=== PATIENT | female | born 1965 | race Caucasian/White ===

== ENCOUNTER 2021-02-16 13:26 | Outpatient (REF) | payer OTHER, SELFPAY ==
--- NOTE | ~2021-02-16 | MM_ITS ---
EXAMINATION: MM DIAGNOSTIC DIGITAL BREAST TOMOSYNTHESIS, BILATERAL CLINICAL INFORMATION: Due for yearly exam. Also follow-up probable benign asymmetric density upper outer left breast. No known family history breast cancer. The lifetime risk of breast cancer based on the Tyrer-Cuzick Model is 6%. COMPARISON: Mammography: 02/17/2020, 06/29/2019, 12/29/2018, 12/10/2018 (BI-RADS 0), and prior exams dating back to 09/28/2010. TECHNIQUE: Digital breast tomosynthesis is performed in both the craniocaudal and mediolateral oblique views along with computer-aided detection (CAD). Synthesized 2D images are generated from the tomosynthesis. Additional spot left ML x2 views are obtained. FINDINGS: There are scattered areas of fibroglandular density (ACR BI-RADS breast composition Category b). The right breast is unremarkable. There is no interval mass or architectural abnormality. Neither breast shows abnormal calcifications. The bilateral axilla and skin contours are unremarkable. Nodular parenchymal asymmetry upper outer left breast appear stable from prior diagnostic exams. In retrospect, there is similar appearance on more remote mammography but partially obscured by overlying fibroglandular tissue which as subsequently involuted over time. Given the stability during diagnostic surveillance, finding is now considered benign. Results are provided to the patient at time of visit by the technologist. MM/MM tomosynthesis diagnostic BI IMPRESSION: No significant changes from prior studies. The asymmetry left upper outer quadrant is now considered benign. ASSESSMENT: BI-RADS 2: Benign RECOMMENDATION: Routine annual mammography screening. This patient's information was entered into a reminder system with a target due date for their next mammogram.
== END 2021-02-16 13:27 | disposition home or self-care (01) ==
LOC: HO.MAMMO 13:26
PROVIDERS: PCP Family Medicine; Visit Provider Family Medicine
DX: R92.2 Inconclusive mammogram (principal)
CPT/HCPCS: 77062; 77066

== ENCOUNTER 2022-02-19 12:46 | Outpatient (REF) | payer OTHER, SELFPAY ==
--- NOTE | ~2022-02-19 | MM_ITS ---
EXAMINATION: MM SCREENING DIGITAL BREAST TOMOSYNTHESIS, BILATERAL CLINICAL INFORMATION: Screening. Asymptomatic. The lifetime risk of breast cancer based on the Tyrer-Cuzick Model is 6%. COMPARISON: Mammography: 02/16/2021, 06/29/2019, 12/29/2018, 12/10/2018, 11/18/2017 TECHNIQUE: Digital breast tomosynthesis is performed in both the craniocaudal and mediolateral oblique views along with computer-aided detection (CAD). Synthesized 2D images are generated from the tomosynthesis. FINDINGS: There are scattered areas of fibroglandular density (ACR BI-RADS breast composition Category b). Parenchymal pattern is similar to prior studies. Nodularity mid upper outer left breast is stable. There is no developing density or architectural abnormality. No abnormal calcifications. The axilla and skin contours are unremarkable. MM/MM tomosynthesis screening BI IMPRESSION: No significant changes from prior exams. ASSESSMENT: BI-RADS 2: Benign RECOMMENDATION: Routine annual mammography screening. This patient's information was entered into a reminder system with a target due date for their next mammogram.
== END 2022-02-19 12:47 | disposition home or self-care (01) ==
LOC: HO.MAMMO 12:46
PROVIDERS: Visit Provider Family Medicine
DX: Z12.31 Encounter for screening mammogram for malignant neoplasm of breast (principal)
CPT/HCPCS: 77063; 77067

== ENCOUNTER 2023-03-11 13:09 | Outpatient (REF) | payer OTHER, SELFPAY ==
--- NOTE | ~2023-03-11 | MM_ITS ---
EXAMINATION: MM SCREENING DIGITAL BREAST TOMOSYNTHESIS, BILATERAL CLINICAL INFORMATION: Screening. Asymptomatic. The lifetime risk of breast cancer based on the Tyrer-Cuzick Model is 6.4%. COMPARISON: Mammography: This study is compared with prior exams dating back to 2019. TECHNIQUE: Digital breast tomosynthesis is performed in both the craniocaudal and mediolateral oblique views along with computer-aided detection (CAD). Synthesized 2D images are generated from the tomosynthesis. FINDINGS: There are scattered areas of fibroglandular density (ACR BI-RADS breast composition Category b). There are no significant masses, abnormal calcifications, or other abnormalities. MM/MM tomosynthesis screening BI IMPRESSION: No mammographic evidence of malignancy. ASSESSMENT: BI-RADS BI-RADS 1 - Negative RECOMMENDATION: Routine annual mammography screening. 1 year F/U This examination should not preclude the clinical evaluation of a suspicious palpable abnormality. This patient's information was entered into a reminder system with a target due date for their next mammogram.
== END 2023-03-11 13:10 | disposition home or self-care (01) ==
LOC: HO.MAMMO 13:09
PROVIDERS: Visit Provider Family Medicine
DX: Z12.31 Encounter for screening mammogram for malignant neoplasm of breast (principal)
CPT/HCPCS: 77063; 77067

== ENCOUNTER → 2023-03-11 13:30 | Outpatient (BNV) | payer OTHER, SELFPAY | PROVIDERS: Visit Provider Radiology Diagnostic Radiology | DX: Z12.31 Encounter for screening mammogram for malignant neoplasm of breast (principal) | CPT/HCPCS: 77063; 77067 ==

== ENCOUNTER 2023-07-23 12:32 | Outpatient (REF) | payer OTHER, SELFPAY ==
[2023-07-23 14:33] LABS: MANUAL DIFF FLAG NO
[2023-07-23 14:33] LABS: Appearance Urine Clear; Color Urine Dark Yellow; Glucose Urine UA Negative (Negative); Leukocyte Esterase Urine Trace (Negative); Nitrite Urine Negative (Negative); Specific Gravity - Urine >= 1.030 (1.005-1.025); UMIC TRIGGER UA YES; Urine Blood Trace (Negative); Urine Ketones Trace mg/dL (Negative); Urine Protein 30 (1+) mg/dL (Neg-Trace)
[2023-07-23 14:38] LABS: Bacteria Urine None Seen (None Seen); Squamous Epithelial Cell Urine 0-2 /HPF (0-2); WBC Urine 0-5 /HPF (0-5)
[2023-07-23 14:40] LABS: Basophils Absolute Auto 0.1 X10*3/uL (0.0-0.2); Basophils Percent Auto 0.7 % (0-2); Eosinophils Absolute Auto 0.1 X10*3/uL (0.0-0.4); Eosinophils Percent Auto 1.1 % (0-4); Hematocrit 43.1 % (37.0-47.0); Hemoglobin 14.1 g/dl (12.0-16.0); Imm Gran Abs Auto 0.02 X10*3/uL (0.00-0.03); Imm Gran Pct Auto 0.3 % (0.0-0.4); Lymphocytes Absolute Auto 2.2 X10*3/uL (1.2-4.9); Lymphocytes Percent Auto 29.5 % (20-40); Mean Corpuscular HGB Conc 32.7 g/dl (31.0-35.0); Mean Corpuscular Hemoglobin 32.2 pg (27.0-33.0); Mean Corpuscular Volume 98.4 fL (80.0-98.0); Mean Platelet Volume 12.1 fL (9.4-12.3); Monocytes Absolute Auto 0.5 X10*3/uL (0.1-1.2); Neutrophils Absolute Auto 4.7 x10*3/uL (2.0-8.3); Neutrophils Percent Auto 62.4 % (45-73); Platelet Count 290 X10*3/uL (160-400); Red Blood Count 4.38 X10*6/uL (4.20-5.50); Red Cell Distribution Width 12.6 % (11.0-16.0); White Blood Count 7.5 X10*3/uL (4.8-10.8)
[2023-07-23 15:28] LABS: Alanine Aminotransferase 17 U/L (0-31); Albumin Level 4.1 g/dL (3.5-5.0); Alkaline Phosphatase 56 U/L (39-117); Anion Gap 8 (12-20); Aspartate Amino Transferase 17 U/L (5-31); Bilirubin Total 0.4 mg/dL (0.0-1.0); Blood Urea Nitrogen 13 mg/dL (9-16); Calcium 9.7 mg/dL (8.4-10.2); Carbon Dioxide 32 mmol/L (22-29); Chloride 104 mmol/L (96-108); Cholesterol 207 mg/dL (<200); Estimated Glomerular Filt Rate > 60; Glucose Random 81 mg/dL (60-115); HDL Cholesterol 48 mg/dL (>40); LDL Cholesterol Calculated 144 mg/dL (<100); Sodium 141 mmol/L (135-145); Total Protein 7.4 g/dL (6.5-8.0); Triglycerides 76 mg/dL (<150)
[2023-07-23 15:44] LABS: TSH reflex Free T4 2.08 uIU/mL (0.32-4.0)
== END 2023-07-23 12:33 | disposition home or self-care (01) ==
LOC: HO.CHCLDS 12:32
PROVIDERS: Visit Provider Family Medicine
DX: I10 Essential (primary) hypertension (principal); E78.5 Hyperlipidemia, unspecified
CPT/HCPCS: 36415; 80053; 80061; 81001; 84443; 85025

== ENCOUNTER 2023-07-29 10:42 | Outpatient (REF) | payer OTHER, SELFPAY ==
[2023-07-29 14:36] LABS: Anion Gap 10 (12-20); Blood Urea Nitrogen 13 mg/dL (9-16); Calcium 9.7 mg/dL (8.4-10.2); Carbon Dioxide 30 mmol/L (22-29); Chloride 102 mmol/L (96-108); Estimated Glomerular Filt Rate > 60; Glucose Random 77 mg/dL (60-115); Magnesium 1.9 mg/dL (1.6-2.6); Potassium 3.3 mmol/L (3.3-5.1); Sodium 139 mmol/L (135-145)
[2023-07-29 15:05] LABS: Appearance Urine Cloudy; Color Urine Yellow; Glucose Urine UA Negative (Negative); Leukocyte Esterase Urine Negative (Negative); Nitrite Urine Negative (Negative); PH 5.5 (5.0-9.0); Specific Gravity - Urine >= 1.030 (1.005-1.025); UMIC TRIGGER UA YES; Urine Blood Negative (Negative); Urine Ketones Trace mg/dL (Negative); Urine Protein 30 (1+) mg/dL (Neg-Trace)
[2023-07-29 15:24] LABS: Bacteria Urine Trace (None Seen); Hyaline Casts Urine 0-2 /LPF (0-2); WBC Urine 0-5 /HPF (0-5)
== END 2023-07-29 10:43 | disposition home or self-care (01) ==
LOC: HO.CHCLDS 10:42
PROVIDERS: Visit Provider Family Medicine
DX: R31.9 Hematuria, unspecified (principal); E87.6 Hypokalemia
CPT/HCPCS: 36415; 80048; 81001; 83735

== ENCOUNTER 2023-08-23 13:55 | Outpatient (AMB) | payer OTHER, SELFPAY ==
--- NOTE | 2023-08-23 13:58 | MHC.OFFVIS ---
Intake Intake Visit Reasons: microhematuria Intake Note: New Patient presents for initial visit for microhematuria Urology Medications: none Blood Thinner: none Smoker: never Loan Closer Required: Yes Loan Closer Name: MERRICK VALENCIA Accompanied by: Self / Same As Patient Allergies ascorbic acid [ASCORBIC ACID] Allergy (Unknown, Unverified 08/24/23 21:38) HIVES Medication List - Last Reconciled 08/24/23 by MARCIA Gunderson atorvastatin 40 mg PO DAILY chlorthalidone 25 mg PO DAILY verapamil ER 240 mg PO DAILY HPI HPI Comments History of Present Illness Details Leny is a very pleasant 58-year-old [place]alese-speaking female patient. She has a past medical history of hypertension, hyperlipidemia, and depression. She presents to the office today as a new patient for microscopic hematuria. In discussion with the patient today she reports to be doing and feeling well. She reports having had urine tested with PCP for her annual visit at which time she was noted to have microscopic hematuria and recommendations were made for Urology follow-up. When asked she denies any previous smoking history and or workplace chemical exposures. She denies any bothersome urinary issues or concerns. She reports be happy with current voiding parameters. When asked she denies urinary urgency, urinary frequency, incontinence, nocturia, hematuria, dysuria, foul smelling urine, changes to urinary stream, flank pain, fever, and or chills. In office urinalysis results reviewed with the patient today. No microscopic hematuria noted. Discussed at length potential causes for microscopic hematuria. Discussed surveillance monitoring versus further microscopic hematuria workup with in office cystoscopy, urine cytology, and imaging. She otherwise offers no other issues or concerns at this time. [facility] Medical History Hyperlipidemia Essential hypertension Depressive disorder Review of Systems Const Reports as per HPI Eyes Reports no additional complaints ENT Reports no additional complaints Card Reports as per HPI Resp Reports no additional complaints GI Reports as per HPI Reports as per HPI Musc Reports no additional complaints Neuro Reports no additional complaints Psych Reports as per HPI Endo Reports no additional complaints Nate/Lymph Reports no additional complaints Aller/Immun Reports no additional complaints Physical Exam Const General: cooperative, healthy appearing, comfortable, no acute distress, well developed, alert and awake Orientation/consciousness: patient oriented x3 Limitations: no limitations HEENT Head: Yes normal to inspection, Yes normocephalic and Yes atraumatic Ears: hearing grossly normal bilaterally Eyes General: appearance normal, both eyes and all related structures Neck Neck: Yes normal visual inspection and Yes trachea midline Chest Chest palpation & inspection: normal inspection of the chest Resp Effort & Inspection: normal respiratory effort and able to speak in complete sentences Cardio Rate: regular rate GI Inspection: Yes normal to inspection General: Yes no CVA tenderness Back/Spine/Pelvis Back: no CVA tenderness Skin General skin exam: no rashes or lesions noted Neuro General: patient oriented x3 Extrem General: Yes normal to inspection Psych Appearance: grossly normal and well kempt Mental Status: mental status grossly normal Speech and movement: Normal speech and movement present and Clear speech present Affect: normal affect Attitude: cooperative Thought process: Normal thought process present Thought content: Normal thought content present Insight: Good insight present (Psych) Judgement: Good judgement present (Psych) Results AMB Urinalysis, Automated UA Leukoctes 70 Petr/uL Last Edit by Eletrogóes on 08/23/23 15:19 UA Nitrite Negative Last Edit by Eletrogóes on 08/23/23 15:19 UA Urobilinogen 0.2 mg/dL Last Edit by Eletrogóes on 08/23/23 15:19 UA Protein 15 mg/dL Last Edit by Eletrogóes on 08/23/23 15:19 UA pH 7.0 Last Edit by Eletrogóes on 08/23/23 15:19 UA Blood 0 Mike/uL Last Edit by [employer] on 08/23/23 15:19 UA Specific [place] 1.015 Last Edit by [employer] on 08/23/23 15:19 UA Ketone Negative Last Edit by [employer] on 08/23/23 15:19 UA Bilirubin 0 mg/dL Last Edit by [employer] on 08/23/23 15:19 UA Glucose 0 mg/dL Last Edit by [employer] on 08/23/23 15:19 Results Reviewed Results Reviewed: Laboratory Last Values Urine pH (Auto) 7.0 08/23/23 14:06 Specific [place] (Auto) 1.015 08/23/23 14:06 Urine Protein (Auto) 15 mg/dL 08/23/23 14:06 Glucose (UA)(Auto) 0 mg/dL 08/23/23 14:06 Urine Ketones (Auto) Negative 08/23/23 14:06 Urine Blood (Auto) 0 Mike/uL 08/23/23 14:06 Urine Nitrite (Auto) Negative 08/23/23 14:06 Urine Bilirubin (Auto) 0 mg/dL 08/23/23 14:06 Urine Urobilinogen (Auto) 0.2 mg/dL 08/23/23 14:06 Leukocyte Esterase (Auto) 70 Petr/uL 08/23/23 14:06 Assessment & Plan Assessment & Plan (1) Microscopic hematuria: Code(s): R31.29 - Other microscopic hematuria Plan In office urinalysis results reviewed with the patient today; as noted above; no microscopic hematuria noted on UA today. Discussed at length potential causes for microscopic hematuria. Discussed, educated, encouraged on the importance of drinking plenty of water daily. Patient denies any bothersome urinary issues or concerns at this time. Patient reports be happy with current voiding parameters. Discussed further microscopic hematuria workup with urine cytology, imaging, and in office cystoscopy versus surveillance monitoring; this was discussed at length; discussed risks and benefits of these interventions. Will continue with surveillance monitoring. Follow-up in 6 months; or sooner with any issues, concerns, and or questions. Orders: Orders AMB Urinalysis Automated 08/23/23 Z13.9 - Encounter for screening, unspecified Urine Cytology 08/23/23 Z13.9 - Encounter for screening, unspecified Patient Instructions: The patient had an opportunity to ask questions regarding the treatment plan. All questions were answered. Physical exam, labs, and imaging were discussed and reviewed in detail. As well as risks, benefits, and discussion of treatment choices. No major barriers to understanding were identified. The patient expressed understanding and agreement with the above treatment plan. The patient was made aware they should contact our office by phone for worsening of their current condition, the appearance of new symptoms, or with any questions or concerns. Compliance is encouraged with any medications and follow up testing that is ordered. It is a privilege to be allowed the opportunity to participate in? your urological care.? Again, if you have any questions or concerns If you have any questions or concerns please do not hesitate to contact me. The office is [phone]. This note is constructed using voice recognition software. While every effort has been made to ensure accuracy tool and machine maintainer errors may have been included. Yours sincerely, GUCCI Gunderson-PAVEL Coding Level of Care Code New Pt Level 3 (75609) Diagnoses Microscopic hematuria R31.29
== END 2023-08-23 14:32 | disposition home or self-care (01) ==
PROVIDERS: Visit Provider Nurse Practitioner Family
DX: R31.29 Other microscopic hematuria (principal)
CPT/HCPCS: 99203

== ENCOUNTER 2023-08-23 13:55 | Outpatient (REF) | payer OTHER, SELFPAY ==
[2023-08-23 16:04] LABS: Urine Cytology See Pathology rpt
== END 2023-08-23 13:56 | disposition home or self-care (01) ==
LOC: HO.LNP 13:55
PROVIDERS: Visit Provider Nurse Practitioner Family
DX: R31.29 Other microscopic hematuria (principal)
CPT/HCPCS: 81003; 88112; 99202

== ENCOUNTER 2023-08-29 15:03 | Outpatient (REF) | payer OTHER, SELFPAY ==
[2023-08-29 18:20] LABS: Anion Gap 14 (12-20); Blood Urea Nitrogen 14 mg/dL (9-16); Carbon Dioxide 29 mmol/L (22-29); Chloride 100 mmol/L (96-108); Estimated Glomerular Filt Rate > 60; Glucose Random 96 mg/dL (60-115); Magnesium 1.9 mg/dL (1.6-2.6); Potassium 3.2 mmol/L (3.3-5.1); Sodium 140 mmol/L (135-145)
[2023-08-30 08:21] LABS: HIV AB/AG Nonreactive (Nonreactive); HIV Num 1 0.05 S/CO (0.00-0.99); ~HepC Num1 0.11 S/CO (0.00-0.79); ~Hepatitis C Antibody Nonreactive (Nonreactive)
== END 2023-08-29 15:04 | disposition home or self-care (01) ==
LOC: HO.CHCLDS 15:03
PROVIDERS: Visit Provider Family Medicine
DX: E87.6 Hypokalemia (principal)
CPT/HCPCS: 36415; 80048; 83735; 86803; 87389

== ENCOUNTER 2023-09-17 12:59 | Outpatient (REF) | payer OTHER, SELFPAY ==
[2023-09-17 15:03] LABS: Anion Gap 12 (12-20); Blood Urea Nitrogen 10 mg/dL (9-16); Calcium 9.7 mg/dL (8.4-10.2); Carbon Dioxide 28 mmol/L (22-29); Chloride 102 mmol/L (96-108); Estimated Glomerular Filt Rate > 60; Glucose Random 95 mg/dL (60-115); Potassium 3.5 mmol/L (3.3-5.1); Sodium 138 mmol/L (135-145)
== END 2023-09-17 13:00 | disposition home or self-care (01) ==
LOC: HO.CHCLDS 12:59
PROVIDERS: Visit Provider Family Medicine
DX: E87.6 Hypokalemia (principal)
CPT/HCPCS: 36415; 80048

== ENCOUNTER 2024-03-12 12:54 | Outpatient (REF) | payer OTHER, SELFPAY | END 2024-03-12 12:55 | disposition home or self-care (01) | LOC: HO.MAMMO 12:54 | PROVIDERS: Visit Provider Family Medicine | DX: Z12.31 Encounter for screening mammogram for malignant neoplasm of breast (principal) | CPT/HCPCS: 77063; 77067 ==

== ENCOUNTER → 2024-03-12 13:15 | Outpatient (BNV) | payer OTHER, SELFPAY | PROVIDERS: Visit Provider Radiology Diagnostic Radiology | DX: Z12.31 Encounter for screening mammogram for malignant neoplasm of breast (principal) | CPT/HCPCS: 77063; 77067 ==

== ENCOUNTER 2024-05-05 11:45 | Outpatient (REF) | payer OTHER, SELFPAY ==
[2024-05-05 15:22] LABS: Anion Gap 12 (12-20); Blood Urea Nitrogen 11 mg/dL (9-16); Calcium 9.7 mg/dL (8.4-10.2); Carbon Dioxide 29 mmol/L (22-29); Chloride 104 mmol/L (96-108); Cholesterol 227 mg/dL (<200); Estimated Glomerular Filt Rate > 60; Glucose Random 90 mg/dL (60-115); HDL Cholesterol 48 mg/dL (>40); LDL Cholesterol Calculated 160 mg/dL (<100); Magnesium 1.9 mg/dL (1.6-2.6); Potassium 3.5 mmol/L (3.3-5.1); Sodium 141 mmol/L (135-145); Triglycerides 99 mg/dL (<150)
== END 2024-05-05 11:46 | disposition home or self-care (01) ==
LOC: HO.CHCLDS 11:45
PROVIDERS: Visit Provider Family Medicine
DX: I10 Essential (primary) hypertension (principal); E78.5 Hyperlipidemia, unspecified
CPT/HCPCS: 36415; 80048; 80061; 83735

== ENCOUNTER 2025-01-18 10:38 | Outpatient (REF) | payer OTHER, SELFPAY ==
--- NOTE | ~2025-01-18 | XR_ITS ---
EXAMINATION: XR ABDOMEN KUB CLINICAL INDICATION: LUQ abdominal pain,constipation COMPARISON: None available. TECHNIQUE: AP view of the abdomen, supine. FINDINGS: Bowel gas pattern is normal/nonspecific. No focally dilated loop. There is a mild stool burden seen throughout the colon and rectum. No abnormal soft tissue calcifications are evident. No organomegaly. No indirect evidence of free air. No discrete osseous abnormality. XR/XR KUB IMPRESSION: 1. No bowel obstruction. 2. Mild constipation. Electronically signed by: Kamran Hernandez MD 01/18/2025 10:59 AM EDT
--- OUTSIDE RECORDS SUMMARY | 2025-01-18 11:19 | XMS_ITS | Encounter Summary ---
Author Organization [employer] [facility] Address [address] [place] [address] [address] [place] [address] Care Team Providers Care Academic Coach Name Role Phone Linda Ornelas MD Primary Care Provider [phone] Encounter Details Date Type Department Care Team ([facility] Contact Info) Description 05/07/2023 Orders Only [facility] [address] [place] [address] Lakesha Saravia LPN Social History Tobacco Use Types Packs/Day Years Used Date Smoking Tobacco: Never Smokeless Tobacco: Never Alcohol Use Standard Drinks/Week Comments Never 0 (1 standard drink = 0.6 oz pur e alcohol) Comments Unknown Sex and Gender Information Value Date Recorded Sex Assigned at Female 07/02/2022 10:15 AM EDT Legal Sex Female 10:15 AM EDT Gender Identity Female 07/02/2022 10:15 AM EDT Sexual Orientation Choose not to disclose 2021 10:15 AM EDT documented as of this encounter Plan of Treatment Upcoming Encounters Date Type Department Care Team (Late st Contact Info) Description 04/22/2025 11:30 AM EDT Office Visit [facility] [address] [place] [address] Nae Quiroz MD [address] [place] [address] documented as of this encounter Visit Diagnoses Not on filedocumented in this encounter Care Teams Academic Coach Relationship Specialty Start Date End Date Linda Ornelas MD [address] [place] [address] PCP - General Family Medicine 05/02/20 documented as of this encounter
--- OUTSIDE RECORDS SUMMARY | 2025-01-18 11:19 | XMS_ITS | Clinical Summary ---
Author Organization [employer] Address [address] [facility] [address] [place] [address] Care Team Providers Care Vending Machine Filler Name Role Phone Linda Ornelas MD Primary Care Provider [phone] Allergies Active Allergy Reactions Criticality Noted Date Comments Joseph Inhibitors Cough 09/06/2010 Medications cetirizine (ZyrTEC) 10 MG tablet TOME JONA TABLETA TODOS LOS D CUANDO SEA NECESARIO 02/08/20 23 Active hydrocortisone 1 % cream APPLY TOPICALLY TWICE DAILY TO AFFECGTED AREA 28 g 1 07/04/20 23 Active valACYclovir (Valtrex) 500 MG tablet Take 1 tablet by mouth every 12 (twelve) hours. 01/20/20 20 Active atorvastatin (Lipitor) 40 MG tabletIndications :Mixed hyperlipidemia TOME JONA TABLETA TODOS [facility] 90 tablet 1 03/06/20 24 Active hydrocortisone (Anusol-HC) 2.5 % rectal cream Insert into the rectum 2 times daily. 90 g 04/27/20 24 Active chlorthalidone (Hygroton) 25 MG tabletIndications :Primary hypertension TOME 1 TABLETA POR VIA ORAL TODOS LOS [place] 90 tablet 1 11/14/19 25 Active verapamil SR (Calan SR) 240 MG ER tablet TAKE 1 TABLET BY MOUTH AT BEDTIME. DO NOT CRUSH OR CHEW. 90 tablet 1 01/01/20 25 Active magnesium oxide (Mag-Ox) 400 (240 Mg) MG tablet Take 1 tablet (400 mg) by mouth Once per day. 30 tablet 11 01/15/20 25 Active verapamil SR (Calan SR) 240 MG ER tablet TAKE 1 TABLET (240 MG) BY MOUTH AT BEDTIME. DO NOT CRUSH OR CHEW. 90 tablet 1 07/06/20 24 025 Discontinued Active Problems Problem Noted Date Diagnosed Date Other hemorrhoids 04/27/2024 Assessment & Plan (04/27/2024 1:19 PM EDT): Discussed medications and refills as needed. Hypokalemia 07/31/2023 Assessment & Plan (10/22/2023 4:13 PM EST): Patient will be send for labs to reassess values. Labs: Basic Metabolic Panel, Magnesium Assessment & Plan (08/29/2023 2:53 PM EST): Patient will be send for labs for further evaluation. -Labs: Basic Metabolic Panel, Magnesium Hyperlipidemia 04/27/2014 07/19/2023 Assessment & Plan (04/27/2024 1:20 PM EDT): Ordering lab work for recheck Constipation 06/09/2013 07/19/2023 Allergic rhinitis 02/28/2012 07/19/2023 Anxiety state 02/28/2012 07/19/2023 Depressive disorder 02/28/2012 07/19/2023 Assessment & Plan (07/19/2023 10:41 AM EST): Advised patient that she would benefit to talk with a therapist, however, patient declined. Will keep treating with medication. Essential hypertension 02/28/2012 Assessment & Plan (04/27/2024 1:49 PM EDT): Continue Medications, ordering lab work for further evaluation. Reviewed and updated immunization records, pt declined. Follow up in 6 months Assessment & Plan (10/22/2023 4:16 PM EST): Controlled: Patient presented visit with stable blood pressure. I have also advised to keep monitoring at home, and bring readings upon next visit. I have counseled her on exercise and nutrition. I will F/U with patient in 6 months. Assessment & Plan (08/29/2023 2:53 PM EST): Uncontrolled: patient presented visit with an elevated blood pressure with readings of 140/82 mmHg. However, will not make any changes at this time. Advised to keep monitoring at home, and bring readings upon next office visit. Recommended to follow up in 2-3 months. Assessment & Plan (07/19/2023 10:41 AM EST): Controlled: patient will not be having any changes at this time. Advised to keep monitoring at home. -Labs: Albumin, CBC, C. Met. Panel, Lipid Panel, TSH/FT4, Urinalysis. Resolved Problems Problem Noted Date Diagnosed Date Resolved Date Microhematuria 07/31/2023 10/22/2023 Anemia 02/28/2012 07/19/2023 10/22/2023 Encounters Date Type Department Care Team Description 01/14/2025 11:15 AM EDT Office Visit [facility] [address] [place] [address] Nae Quiroz MD Left upper quadrant abdominal pain (Primary Dx); Dietary counseling; Exercise counseling 01/14/2025 Travel 01/11/2025 Telephone [facility] [address] [place], [place] [phone] Linda Ornelas MD Nurse Triage 12/31/2024 Refill [facility] [address] [place], [place] [phone] Linda Ornelas MD 11/12/2024 Refill [facility] [address] [place] [place], [place] [phone] Linda Ornelas MD Primary hypertension from Last 3 Months Immunizations Immunization Administration Dates Next Due Influenza Injectable Quadriv alant Preservative Free IIV4 MDCK 05/31/2022 Influenza injectable quadriv alent preservative free 06/06/2021,07/02/2020,09/24/2018 Influenza, IIV3, injectable 07/22/2014, 1,07/07/2010 Influenza, Split (incl. drake fied surface antigen) 06/09/2013 Tdap 07/18/2011 Zoster, Recombinant 03/26/2022 Social History Tobacco Use Types Packs/Day Years Used Date Smoking Tobacco: Never Smokeless Tobacco: Never Tobacco Cessation:Counseling Given: Not Answered Alcohol Use Standard Drinks/Week Comments Never 0 (1 standard drink = 0.6 oz pur e alcohol) Depression Answer Date Recorded Patient Health Questionnaire-9 Score 0 04/27/2024 Patient Health Questionnaire-9 Score 0 04/27/2024 Last PHQ-9: Questionnaire Data Not on file 0 04/27/2024 Housing Stability Answer Date Recorded What is your housing situation today? I have darrel agarwal 07/19/[address] you li ve. Do you have problems with any of the following? None of the above 07/19/2023 Food Insecurity Answer Date Recorded Within the past 12 months, y ou worried that your food would run out before you got money to buy more: Never True 07/19/2023 Within the past 12 months,th e food you bought just didn't last and you didn't have enough money to get more: Never True Transportation Answer Date Recorded In the past 12 months, has l ack of transportation kept you from medical appts, meetings, work or from getting things needed for daily living? No 07/19/2023 Utilities Answer Date Recorded In the past 12 months, has t he electric, gas, oil or water company threatened to shut off services in your home? No 07/19/2023 Depression Answer Date Recorded Patient Health Questionnaire-2 Score 0 04/27/2024 Internet Access Answer Date Recorded Internet Access Q1 Yes 05/04/2024 Internet Access Q2 Not on file 05/04/2024 Comments Unknown Sex and Gender Information Value Date Recorded Sex Assigned at Female 07/02/2022 10:15 AM EDT Legal Sex Female 10:15 AM EDT Gender Identity Female 07/02/2022 10:15 AM EDT Sexual Orientation Choose not to disclose 2021 10:15 AM EDT Last Filed Vital Signs Vital Sign Reading Time Taken Comments Blood Pressure 123/77 01/14/2025 11:16 AM EDT Pulse 76 01/14/2025 11:16 AM EDT Temperature 37.2 ??C (98.9 ??F) 01/14/2025 11:16 AM E DT Respiratory Rate 16 01/14/2025 11:16 AM EDT Oxygen Saturation 98% 01/14/2025 11:16 AM EDT Inhaled Oxygen Concentration - - Weight 64.4 kg (142 lb) 01/14/2025 11:16 AM EDT Height 158 cm (5' 2.21 ) 01/14/2025 11:16 AM EDT Body Mass Index 25.8 01/14/2025 11:16 AM EDT Plan of Treatment Upcoming Encounters Date Type Department Care Team (Late st Contact Info) Description 04/22/2025 11:30 AM EDT Office Visit [facility] [address] [place] [address] Nae Quiroz MD [address] [place] [address] Health Maintenance Due Date Last Done Comments CT Colonography 1965 Colonoscopy 1965 FIT 1965 FOBT 1965 Sigmoidoscopy 1965 Alcohol/Substance Use Screening 1975 Pneumococcal Vaccine: 50+ Years (1 of 1 - PCV) 2013 DTaP/Tdap/Td Vaccines (2 - Td or Tdap) 07/18/2021 07/18/2011 Zoster Vaccines (2 of 2) 05/21/2022 03/26/2022 COVID-19 Vaccine (1 - season) 2024 Influenza Vaccine (#1) 2024 , 06/06/2021, 07/02/2020, Additional history exists SDOH Screening 04/17/2025 04/17/2024 Depression Screening 04/27/2025 04/27/2024, 04/27/20 24 Tobacco Screening 04/27/2025 04/27/2024 Pap Smear 10/29/2025 10/29/2022, 09/16/2019 Mammogram 03/12/2026 03/12/2024, 07, 02/19/2022, Additional history exists Colorectal Cancer Screening 08/13/2026 FIT DNA/Cologuard 08/13/2026 08/13/2023 Cervical Cancer Screening 10/29/2027 HPV/Cotest 10/29/2027 10/29/2022, 09/16/2019 Lipid Panel 05/05/2029 05/05/2024, 112 09/2022, 07/23/2022, Additional history exists RSV Patients and Patients Aged 60 years or older (1 - 1-dose 75+ series) 2038 HIV Screening Completed 08/29/2023 Hepatitis C Screening Completed 08/29/2023 HIB Vaccines Aged Out No longer eligi ble based on patient's age to complete this topic HPV Vaccines Aged Out No longer eligi ble based on patient's age to complete this topic Hepatitis A Vaccines Aged Out No long er eligible based on patient's age to complete this topic Hepatitis B Vaccines Aged Out No long er eligible based on patient's age to complete this topic IPV Vaccines Aged Out No longer eligi ble based on patient's age to complete this topic Meningococcal B Vaccine Aged Out No l onger eligible based on patient's age to complete this topic Meningococcal Vaccine Aged Out No tyler harriet eligible based on patient's age to complete this topic RSV under 20 months Aged Out No longe r eligible based on patient's age to complete this topic Rotavirus Vaccines Aged Out No longer eligible based on patient's age to complete this topic Procedures Procedure Name Priority Date/Time Associated Diagnosis Comments XR KUB AND UPRIGHT 2 VIEWS Routine 01/18/2025 10:40 AM EDT Left upper quadrant abdominal pain LIPID PANEL, STANDARD Routine 05/05/2024 11:47 AM EDT Hyperlipidemia, unspecified hyperlipidemia type BI MAMMOGRAM SCREENING TOMOSYNTHESIS BILATERAL Routine 03/12/2024 1:14 PM EDT HEPATITIS C AB W/REFL TO HCV RNA, QN, PCR Routine 08/29/2023 3:05 PM EST Encounter for health-related screening HIV 1/2 ANTIGEN/ANTIBODY, FOURTH GENERATION W/RFL Routine 08/29/2023 3:05 PM EST Encounter for health-related screening LAB COLOGUARD?? COLON CANCER SCREEN Routine 08/13/2023 8:00 AM EST Colon cancer screening IMAGE-GUIDED PAP W/AGE BASED SCR PROTOCOLS Routine 10/29/2022 10:03 AM EST from Last 3 Months or Most Recently Relevant to Health Maintenance Results * XR KUB and Upright 2 Views (01/18/2025 10:40 AM EDT) Anatomical Region Laterality Modality Radiographic Cassia ging 01/18/2025 10:4 0 AM EDT Narrative 01/18/2025 11:02 AM EDT ? [facility] ?[address] ?[place] [address] ?XRay Report ? Signed ? Patient: Russo,Leny ?MR#: [id number] ?? 559 ? : 1965 ?Acct:[id number] ? Age/Sex: 59 / F ?ADM Date: 01/18/25 ? Loc: HO.XRAY ? Attending Dr: Nae Quiroz MD ? Ordering Physician: Nae Quiroz MD ?? Date of Service: 01/18/25 ?? Procedure(s): XR KUB ?? Accession Number(s): [id number] ? cc: Nae Quiroz MD; Linda Ornelas MD ? EXAMINATION: ?? XR ABDOMEN KUB ? CLINICAL INDICATION: ?? LUQ abdominal pain,constipation ? COMPARISON: ?? None available. ? TECHNIQUE: ?? AP view of the abdomen, supine. ? FINDINGS: ?? Bowel gas pattern is normal/nonspecific. No focally dilated loop. ?? There is a mild stool burden seen throughout the colon and rectum. ?? No abnormal soft tissue calcifications are evident. No organomegaly. ?? No indirect evidence of free air. ? No discrete osseous abnormality. ? XR/XR KUB ?? IMPRESSION: ?? 1. No bowel obstruction. ?? 2. Mild constipation. ? Electronically signed by: ??Kamran Hernandez MD ??01/18/2025 10:59 AM EDT RP ? Dictated By: ?Kamran Hernandez MD ? Signed By: ?<Electronically signed by Kamran Hernandez MD in OV> ?01/18/25 1059 ? DD/ 1040 ? TD/TT: 01/18/25 1050 ? Rotating Equipment Engineer: ? Procedure Note [place], [place] - 01/18/[address] [address] XRay Report Signed Patient: Andrea Russo#: [id number] 559 : 1965Acct:[id number] Age/Sex: 59 / FADM Date: 01/18/25 Loc: HO.XRAY Attending Dr: Nae Quiroz MD Ordering Physician: Nae Quiroz MD Date of Service: 01/18/25 Procedure(s): XR KUB Accession Number(s): [id number] cc: Nae Quiroz MD; Linda Ornelas MD EXAMINATION: XR ABDOMEN KUB CLINICAL INDICATION: LUQ abdominal pain,constipation COMPARISON: None available. TECHNIQUE: AP view of the abdomen, supine. FINDINGS: Bowel gas pattern is normal/nonspecific. No focally dilated loop. There is a mild stool burden seen throughout the colon and rectum. No abnormal soft tissue calcifications are evident. No organomegaly. No indirect evidence of free air. No discrete osseous abnormality. XR/XR KUB IMPRESSION: 1. No bowel obstruction. 2. Mild constipation. Electronically signed by: Kamran Hernandez MD 01/18/2025 10:59 AM EDT Dictated By: Kamran Hernandez MD Signed By: <Electronically signed by Kamran Hernandez MD in OV> 01/18/25 1059 DD/ 1040 TD/TT: 01/18/25 1050 Rotating Equipment Engineer: us Nae Quiroz MD IMG XR PROCEDURES Edited Resu lt - Final * (ABNORMAL) Lipid Panel, Standard (05/05/2024 11:47 AM EDT) Triglycerides 99 <150 mg/dL [facility] Comment:Desirable Triglyceri de: less than 150 mg/dLBorderline High Triglyceride 150-199 mg/dLHigh Triglyceride: 200-499 mg/dLVery High Triglyceride: greater than or equal to 5OO mg/dL Cholesterol 227(H) <200 mg/dL [facility] Comment:Desirable Cholestero l: less than 200 mg/dLBorderline High Cholesterol: 200-239 mg/dLHigh Cholesterol: greater than 239 mg/dL LDL Cholesterol Calculated 160(H) <100 mg/dL [facility] Comment:Desirable LDL: less than 100 mg/dLNear Optimal/Above Optimal LDL: 110- 129 mg/dLBorderline High LDL: 130-159 mg/dLHigh LDL: 160-189 mg/dLVery High LDL: greater than or equal to 190 mg/dL HDL Cholesterol 48 >40 mg/dL [facility] Comment:Desirable HDL: great er than 40 mg/dL Note: This HDL assay may give artificially low results in patients with liver disease. Blood Venous blood specimen / Unknown 05/05/2024 11:47 AM EDT 05/05/2024 2:40 PM EDT us Linda Ornelas MD LAB BLOOD ORDERABLES Final Re sult [facility] [address] [place] [address] [phone] * BI Mammogram Screening Tomosynthesis Bilateral (03/12/2024 1:14 PM EDT) Anatomical Region Laterality Modality Breast Bilateral Mammography 03/12/2024 1:14 PM EDT Narrative 04/07/2024 11:02 AM EDT ? [facility] ? [address] ?[place] [address] ? Mammography Report ? Signed ? Patient: Russo,Leny ?MR#: [id number] ?? 559 ? : 1965 ?Acct:[id number] ? Age/Sex: 58 / F ?ADM Date: 07/11/24 ? Loc: HO.MAMMO ? Attending Dr: Linda Ornelas MD ? Ordering Physician: Linda Ornelas MD ?Results: 1Nega ?? tive ? Date of Service: 03/12/24 ?Follow Up: 1 Year From Orig ?? inal Mammogram ? Procedure(s): MM tomosynthesis screening BI ?? Accession Number(s): [id number] ? cc: Linda Ornelas MD ? EXAMINATION: ?? MM SCREENING DIGITAL BREAST TOMOSYNTHESIS, BILATERAL ? CLINICAL INFORMATION: ? Screening. Asymptomatic. ? COMPARISON: ?? Mammography: This study is compared with prior exams dating back to ?? 2018. ? TECHNIQUE: ?? Digital breast tomosynthesis is performed in both the craniocaudal and ?? mediolateral oblique views along with computer-aided detection (CAD). ?? Synthesized 2D images are generated from the tomosynthesis. ? FINDINGS: ?? There are scattered areas of fibroglandular density (ACR BI-RADS breast ?? composition Category b). ? There are no significant masses, abnormal calcifications, or other ?? abnormalities. ? MM/MM tomosynthesis screening BI ?? IMPRESSION: ?? No mammographic evidence of malignancy. ? ASSESSMENT: ? BI-RADS BI-RADS 1 - Negative ? RECOMMENDATION: ?? Routine annual mammography screening. ? 1 year F/U ? This examination should not preclude the clinical evaluation of a ?? suspicious palpable abnormality. ? This patient's information was entered into a reminder system with a ?? target due date for their next mammogram. ? Dictated By: ?Marcella Fall MD ? Signed By: ?<Electronically signed by Marcella Fall MD in OV> ? 04/07/24 1059 ? DD/DT: 24 1314 ? TD/TT: ? Rotating Equipment Engineer: ? Procedure Note Donotuseinterpreter, Image - 04/07/2024 [place] [facility] [address] [place] [address] Mammography Report Signed Patient: Andrea Russo#: [id number] 559 : 1965Acct:[id number] Age/Sex: 58 / FADM Date: 03/12/24 Loc: HO.MAMMO Attending Dr: Linda Ornelas MD Ordering Physician: Linda Ornelas MDResults: 1Nega tive Date of Service: 03/12/24Follow Up: 1 Year From Orig inal Mammogram Procedure(s): MM tomosynthesis screening BI Accession Number(s): [id number] cc: Linda Ornelas MD EXAMINATION: MM SCREENING DIGITAL BREAST TOMOSYNTHESIS, BILATERAL CLINICAL INFORMATION: Screening. Asymptomatic. COMPARISON: Mammography: This study is compared with prior exams dating back to 2019. TECHNIQUE: Digital breast tomosynthesis is performed in both the craniocaudal and mediolateral oblique views along with computer-aided detection (CAD). Synthesized 2D images are generated from the tomosynthesis. FINDINGS: There are scattered areas of fibroglandular density (ACR BI-RADS breast composition Category b). There are no significant masses, abnormal calcifications, or other abnormalities. MM/MM tomosynthesis screening BI IMPRESSION: No mammographic evidence of malignancy. ASSESSMENT: BI-RADS BI-RADS 1 - Negative RECOMMENDATION: Routine annual mammography screening. 1 year F/U This examination should not preclude the clinical evaluation of a suspicious palpable abnormality. This patient's information was entered into a reminder system with a target due date for their next mammogram. Dictated By: Marcella Fall MD Signed By: <Electronically signed by Marcella Fall MD in OV> 04/07/24 1059 DD/ 1314 TD/TT: Rotating Equipment Engineer: us Linda Ornelas MD IMG BI PROCEDURES Final Resul t * Hepatitis C Antibody with Reflex to HCV, RNA, Quantitative, Real-Time PCR (08/29/2023 3:05 PM EST) Hepatitis C Antibody Nonreactive Nonreactive [facility] Comment:Antibodies to HCV no t detected; does not exclude early acuteHCV infection. Blood Venous blood specimen / Unknown 08/29/2023 3:05 PM EST 08/29/2023 5:57 PM EST Linda Ornelas MD LAB BLOOD ORDERABLES Final Re sult Performing Organization Address City/[facility] Co de Phone Number [facility] [address] [place] [address] [phone] * HIV-1/2 Antigen and Antibodies, Fourth Generation, with Reflexes (08/29/2023 3:05 PM EST) Pathologist [facility] HIV AB/AG Nonreactive Nonreactive [facility] Comment:HIV-1 p24 Ag and/or HIV-1/HIV-2 Ab not detected.A test result that is nonreactive does not exclude thepossibility of exposure to or infection with HIV-1 and/orHIV-2. Nonreactive results in this assay for individualswith prior exposure to HIV-1 and/or HIV-2 may be due toantigen and antibody levels that are below the limit ofdetection of this assay.The [facility] HIV Ag/Ab Combo assay result andsupplemental assay results should be interpreted inconjunction with the patient's clinical presentation,history and other laboratory results. If the results areinconsistent with clinical evidence, additional testing issuggested to confirm the result. Blood Venous blood specimen / Unknown 08/29/2023 3:05 PM EST 08/29/2023 5:57 PM EST Linda Ornelas MD LAB BLOOD ORDERABLES Final Re sult Performing Organization Address City/[facility]/ZIP Co de Phone Number [facility] [address] [place] [address] [phone] * Cologuard?? colon cancer screening (08/13/2023 8:00 AM EST) Cologuard Result Negative Negative 08/21/20 1:34 AM [facility] (CLIA #:[id number]) Comment: NEGATIVE TEST RESULT. A negative Cologuard result indicates a low likelihood that a colorectal cancer (CRC) or advanced adenoma (adenomatous polyps with more advanced pre-malignant features) ??is present. The chance that a person with a negative Cologuard test has a colorectal cancer is less than 1 in 1500 (negative predictive value >99.9%) or has an ??advanced adenoma is less than ??5.3% (negative predictive value 94.7%). These data are based on a prospective cross-sectional study of 10,000 individuals at average risk for colorectal cancer who were screened with both Cologuard and colonoscopy. (Kaykay Aguilar al, N Engl J Med 2014;370(14):1286- 1297) The normal value (reference range) for this assay is negative. COLOGUARD RE-SCREENING RECOMMENDATION: Periodic colorectal cancer screening is an important part of preventive healthcare for asymptomatic individuals at average risk for colorectal cancer. ??Following a negative Cologuard result, the [place] [employer] and U.S. Multi-Society Task Force screening guidelines recommend a Cologuard re-screening interval of 3 years. References: [place] [employer] Guideline for Colorectal Cancer Screening: https://www.cancer.org/cancer/rthch-vyhihn-scyfzk/ylrzgzmfx-imdtifhdf-bdwvvio/ac s-rec ommendations.html.; Aj DK, Sanford CR, Ian WyattK, Colorectal Cancer Screening: Recommendations for Physicians and Patients from the U.S. Multi-Society Task Force on Colorectal Cancer Screening , Am J Gastroenterology 2017; 112:4951-4091. TEST DESCRIPTION: Composite algorithmic analysis of stool DNA-biomarkers with hemoglobin immunoassay. ?? Quantitative values of individual biomarkers are not reportable and are not associated with individual biomarker result reference ranges. Cologuard is intended for colorectal cancer screening of adults of either sex, 45 years or older, who are at average-risk for colorectal cancer (CRC). Cologuard has been approved for use by the U.S. FDA. The performance of Cologuard was established in a cross sectional study of average-risk adults aged 50-84. Cologuard performance in patients ages 45 to 49 years was estimated by sub-group analysis of near-age groups. Colonoscopies performed for a positive result may find as the most clinically significant lesion: colorectal cancer [4.0%], advanced adenoma (including sessile serrated polyps greater than or equal to 1cm diameter) [20%] or non- advanced adenoma [31%]; or no colorectal neoplasia [45%]. These estimates are derived from a prospective cross-sectional screening study of 10,000 individuals at average risk for colorectal cancer who were screened with both Cologuard and colonoscopy. (Kaykay Aguilar al, N Engl J Med 2014;370(14):3325-4186.) Cologuard may produce a false negative or false positive result (no colorectal cancer or precancerous polyp present at colonoscopy follow up). A negative Cologuard test result does not guarantee the absence of CRC or advanced adenoma (pre-cancer). The current Cologuard screening interval is every 3 years. ([place] [employer] and U.S. Multi-Society Task Force). Cologuard performance data in a 10,000 patient pivotal study using colonoscopy as the reference method can be accessed at the following location: www.Innolight/results. Additional description of the Cologuard test process, warnings and precautions can be found at www.Février 46ogMyEveTabrd.reBuy.de. Stool specimen (specimen) 08/13/2023 8:00 AM EST 08/14/2023 8:29 PM EST Linda Ornelas MD LAB MOLECULAR DIAGNOSTICS ORD ERABLES Final Result [facility] (CLIA #:[id number]) [address] [place] [address], * Image-Guided Pap with Age-Based Screening Protocols (10/29/2022 10:03 AM EST) Comment [facility] Comment: This order for age-based cervical cancer and STI screening follows ACOG guidelines(PB 168, 140, TPG380). See individual assays for performing site location. Clinical Information: None given [facility] LMP: NONE GIVEN [facility] Prev. PAP: NONE GIVEN [facility] Prev. BX: NONE GIVEN [facility] SOURCE: None given [facility] Statement Of Adequacy: [facility] Comment: Satisfactory for evaluation. Endocervical/transformation zone component present. Interpretation/ Result: Negative for intraepithelial lesion or malignancy. [facility] COMMENT: This Pap test has been evaluated with computer assisted technology. [facility] [employer] [facility]: [facility] Comment: WAC, CT(ASCP) CT screening location: [address] ??[phone] (Always Message) [place] Comment: EXPLANATORY NOTE: The Pap is a screening test for cervical cancer. It is not a diagnostic test and is subject to false negative and false positive results. It is most reliable when a satisfactory sample, regularly obtained, is submitted with relevant clinical findings and history, and when the Pap result is evaluated along with historic and current clinical information. HPV nRNA E6/E7 Not Detected Not Detected [place] Comment: Methodology: Gin Clerk-Mediated Amplification This assay detects E6/E7 viral messenger RNA (mRNA) from 14 high-risk HPV types (16,18,31,33,35,39,45,51,52,56,58,59,66,68). Cervical sources are required for HPV testing. If a vaginal source from a patient who has had a total hysterectomy with removal of cervix was submitted, please contact the testing laboratory for alternative testing options. For additional information, please refer to http://education.[employer].reBuy.de/faq/AZU624e1 (This link if provided for information/ educational purposes only.) 10/29/2022 10:0 3 AM EST 10/31/2022 8:30 AM EST Narrative [facility] - 11/02/2022 10:15 AM EST FASTING: UNKNOWN Nubia Arrington CNM LAB BLOOD ORDERABLES Bella l Result [address], [place] [address] [facility] [address] [facility], (N[address]2) [place] [address] from Last 3 Months or Most Recently Relevant to Health Maintenance Insurance [facility] < 63 [place] [id number] Care Teams Vending Machine Filler Relationship Specialty Start Date End Date Linda Ornelas MD [address] [place] [address] PCP - General Family Medicine 05/02/20
--- OUTSIDE RECORDS SUMMARY | 2025-01-18 11:19 | XMS_ITS | Encounter Summary ---
Author Organization [facility] Address [address] [place] [address] 7 [place] [address] Care Team Providers Care Beam House Inspector Name Role Phone Linda Ornelas MD Primary Care Provider [phone] Reason for Visit * Reason Comments Med Refill Encounter Details Date Type Department Care Team (Late Contact Info) Description 09/21/2022 Refill [facility] MED & PEDS [address] [place] [address] Linda Ornelas MD [address] [place] [address] Primary hypertension (Primary Dx) Social History Tobacco Use Types Packs/Day Years Used Date Smoking Tobacco: Never Assessed Comments Unknown Sex and Gender Information Value Date Recorded Sex Assigned at Female 07/02/2022 10:15 AM EDT Legal Sex Female 10:15 AM EDT Gender Identity Female 07/02/2022 10:15 AM EDT Sexual Orientation Choose not to disclose 2021 10:15 AM EDT documented as of this encounter Plan of Treatment Upcoming Encounters Date Type Department Care Team (Late Contact Info) Description 04/22/2025 11:30 AM EDT Office Visit [facility] MED & PEDS [address] [place] [address] Nae Quiroz MD [address] [place] [address] documented as of this encounter Visit Diagnoses Diagnosis Primary hypertension- Primary Unspecified essential hypertension documented in this encounter Care Teams Beam House Inspector Relationship Specialty Start Date End Date Linda Ornelas MD [address] [place] [address] PCP - General Family Medicine 05/02/20 documented as of this encounter
--- OUTSIDE RECORDS SUMMARY | 2025-01-18 11:19 | XMS_ITS | Encounter Summary ---
Author Organization [employer] Address [address] [facility] 7t [place] [address] Care Team Providers Care Glass Silverer Name Role Phone Linda Ornelas MD Primary Care Provider [phone] Encounter Details Date Type Department Care Team (Latest Contact Info) Description 01/14/2025 Travel Social History Tobacco Use Types Packs/Day Years [...] Upcoming Encounters Date Type Department Care Team ([facility] st Contact Info) Description 04/22/2025 11:30 AM EDT Office Visit [facility] MED & PEDS [address] [place] [address] Nae Quiroz MD [address] [place] [address] documented as of this encounter Visit Diagnoses Not on filedocumented in this encounter Additional Health Concerns Assessment Noted Time PHQ-9 Depression Total Score: 0 04/27/20 24 1:12 PM EDT documented as of this encounter Care Teams Glass Silverer Relationship Specialty Start Date End Date Linda Ornelas MD [address] [place] [address] PCP - General Family Medicine 05/02/20 documented as of this encounter
--- OUTSIDE RECORDS SUMMARY | 2025-01-18 11:19 | XMS_ITS | Encounter Summary ---
Author Organization [employer] Address [address] [facility] 7t [place] [address] Care Team Providers Care Copywriting Intern Name Role Phone Linda Ornelas MD Primary Care Provider [phone] Encounter Details Date Type Department Care Team (Late st Contact Info) Description 01/14/2025 11:15 AM EDT Office Visit [facility] CHC MED & PEDS [address] [place], [place] [id number] Nae Quiroz MD [address] [place] [address] Left upper quadrant abdominal pain (Primary Dx); Dietary counseling; Exercise counseling Social History Tobacco Use Types Packs/Day Years [...] AM EDT documented as of this encounter Last Filed Vital Signs Vital Sign Reading [...] Mass Index 25.8 01/14/2025 11:16 AM EDT documented in this encounter Progress Notes * Nae Quiroz MD - 01/14/2025 11:15 AM EDT Images from the original note were not included. Subjective Patient ID: Leny Russo is a 59 y.o. female who presents for LUQ pain x 3 weeks. Abdominal Pain This is a new problem. The current episode started 1 to 4 weeks ago. The onset quality is gradual. The problem occurs intermittently. The problem has been unchanged. The pain is located in the LUQ. The pain is at a severity of 0/10. The patient is experiencing no pain. The quality of the pain is cramping. The abdominal pain does not radiate. Associated symptoms include belching, constipation and flatus. Pertinent negatives include no anorexia, diarrhea, dysuria, fever, frequency, hematochezia, hematuria, melena, nausea, vomiting or weight loss. Nothing aggravates the pain. The pain is relieved by Passing flatus, belching and bowel movements. She has tried nothing for the symptoms. There is no history of abdominal surgery, colon cancer, Crohn's disease, gallstones, GERD, irritable bowel syndrome, pancreatitis, PUD or ulcerative colitis. Review of Systems Constitutional: Negative for activity change, appetite change, chills, fever, unexpected weight change and weight loss. Respiratory: Negative for cough and shortness of breath. Gastrointestinal: Positive for abdominal pain, constipation and flatus. Negative for abdominal distention, anorexia, blood in stool, diarrhea, hematochezia, melena, nausea, rectal pain and vomiting. Genitourinary: Negative for dysuria, frequency, hematuria, pelvic pain, vaginal bleeding and vaginal discharge. Objective BP 123/77 (BP Location: Right arm, Patient Position: Sitting, BP Cuff Size: Adult) Pulse 76 Temp 98.9 ??F (37.2 ??C) (Oral) Resp 16 Ht 5' 2.21 (1.58 m) Wt 142 lb (64.4 kg) RoB731% BMI 25.80 kg/m?? Physical Exam Vitals reviewed. Constitutional: General: She is not in acute distress. Appearance: Normal appearance. She is not ill-appearing. HENT: Head: Normocephalic. Right Ear: Tympanic membrane and ear canal normal. Left Ear: Tympanic membrane and ear canal normal. Nose: Nose normal. Mouth/Throat: Mouth: Mucous membranes are moist. Pharynx: No oropharyngeal exudate or posterior oropharyngeal erythema. Eyes: Extraocular Movements: Extraocular movements intact. Conjunctiva/sclera: Conjunctivae normal. Pupils: Pupils are equal, round, and reactive to light. Cardiovascular: Rate and Rhythm: Normal rate and regular rhythm. Pulses: Normal pulses. Heart sounds: Normal heart sounds. No murmur heard. Pulmonary: Effort: Pulmonary effort is normal. No respiratory distress. Breath sounds: Normal breath sounds. Abdominal: General: Bowel sounds are normal. There is no distension. Palpations: Abdomen is soft. There is no hepatomegaly, splenomegaly or mass. Tenderness: There is abdominal tenderness in the left upper quadrant. There is no right CVA tenderness, left CVA tenderness, guarding or rebound. Musculoskeletal: General: Normal range of motion. Cervical back: Normal range of motion. Skin: General: Skin is warm. Capillary Refill: Capillary refill takes less than 2 seconds. Neurological: General: No focal deficit present. Mental Status: She is alert and oriented to person, place, and time. Psychiatric: Mood and Affect: Mood normal. Behavior: Behavior normal. Thought Content: Thought content normal. Judgment: Judgment normal. Assessment/Plan Diagnoses and all orders for this visit: Left upper quadrant abdominal pain Comments: Physical exam today pretty benign. Suspecting stool impaction. KUB ordered. Continue good hydration, intake of fiber, magnesium prescribed, more walking etc. call patient when KUB results received. If no increased burden of stool present then will order pelvic ultrasound to look at ovaries and pelvic organs etc. patient expresses understanding. Follow-up with PCP in August also requested. Orders: - XR KUB and Upright 2 Views; Future Dietary counseling Exercise counseling Other orders - magnesium oxide (Mag-Ox) 400 (240 Mg) MG tablet; Take 1 tablet (400 mg) by mouth Once per day. documented in this encounter Plan of Treatment Upcoming Encounters Date Type Department Care Team (Late st Contact Info) Description 04/22/2025 11:30 AM EDT Office Visit [facility] MED & PEDS [address] [place] [address] Nae Quiroz MD [address] [place] [address] documented as of this encounter Procedures Procedure Name Priority Date/Time Associated Diagnosis Comments XR KUB AND UPRIGHT 2 VIEWS Routine 01/18/2025 10:40 AM EDT Left upper quadrant abdominal pain documented in this encounter Results * XR KUB and Upright 2 Views (01/18/2025 10:40 AM EDT) Anatomical Region Laterality Modality Radiographic Cassia ging 01/18/2025 10:4 0 AM EDT Narrative 01/18/2025 11:02 AM EDT ? [facility] ?[address] ?[place] [address] ?XRay Report ? Signed ? Patient: Russo,Leny ?MR#: [id number] ?? [id number] ? : 1965 ?Acct:[id number] ? Age/Sex: 59 / F ?ADM Date: 01/18/25 ? Loc: HO.XRAY ? Attending Dr: Nae Quiroz MD ? Ordering Physician: Nae Quiroz MD ?? Date of Service: 01/18/25 ?? Procedure(s): XR KUB ?? Accession Number(s): [id number] ? cc: Nae Quiroz MD; Linda Ornelas [...] DD/ 1040 ? TD/TT: 01/18/25 1050 ? Cryptozoologist: ? Procedure Note Kvng Rossi - 01/18/[address] [address] XRay Report Signed Patient: Andrea Russo#: [id number] : 1965Acct:[id number] Age/Sex: 59 / FADM Date: 01/18/25 Loc: HO.XRAY Attending Dr: Nae Quiroz MD Ordering Physician: Nae Quiroz MD Date of Service: 01/18/25 Procedure(s): XR KUB Accession Number(s): [id number] cc: Nae Quiroz MD; Linda Ornelas MD [...] Kamran Hernandez MD 01/18/2025 10:59 AM EDT RP Dictated By: Kamran Hernandez MD Signed By: <Electronically signed by Kamran Hernandez MD in OV> 01/18/25 1059 DD/ 1040 TD/TT: 01/18/25 1050 Cryptozoologist: us Nae Quiroz MD IMG XR PROCEDURES Edited Resu lt - Final documented in this encounter Visit Diagnoses Diagnosis Left upper quadrant abdominal pain- Primary Dietary counseling Dietary surveillance and counseling Exercise counseling documented in this encounter Additional Health Concerns Assessment Noted Time PHQ-9 Depression Total Score: 0 04/27/20 24 1:12 PM EDT documented as of this encounter Care Teams Copywriting Intern Relationship Specialty Start Date End Date Linda Ornelas MD [address] [place] [address] PCP - General Family Medicine 05/02/20 documented as of this encounter
== END 2025-01-18 10:39 | disposition home or self-care (01) ==
LOC: HO.XRAY 10:38
PROVIDERS: PCP Family Medicine; Visit Provider Pediatrics
DX: R10.12 Left upper quadrant pain (principal)
CPT/HCPCS: 74018

== ENCOUNTER → 2025-01-18 10:40 | Outpatient (BNV) | payer OTHER, SELFPAY | PROVIDERS: PCP Family Medicine; Visit Provider Radiology Diagnostic Radiology | DX: R10.12 Left upper quadrant pain (principal) | CPT/HCPCS: 74018 ==

== ENCOUNTER 2025-03-29 10:54 | Emergency (ER) | payer OTHER, SELFPAY ==
[2025-03-29 12:09] VITALS: BP 143/73; PULSE 61; RESP 18; TEMP 36.8; O2SAT 100; BMI 27.8
--- OUTSIDE RECORDS SUMMARY | 2025-03-29 16:27 | XMS_ITS | Encounter Summary ---
Author Organization [facility] Address [address] [place] [address] 7 [place] [address] Care Team Providers Care Water Rights Specialist Name Role Phone Linda Ornelas MD Primary Care Provider [phone] Encounter Details Date Type Department Care Team ([facility] Contact Info) Description 05/07/2023 Orders Only [facility] MED & PEDS [address] [place] [address] Lakesha Saravia LPN Social History Tobacco Use [...] Description 04/22/2025 11:30 AM EDT Office Visit [facility] CHC MED & PEDS [address] [place] [address] Nae Quiroz MD [address] [place] [address] documented as of this encounter Visit Diagnoses Not on filedocumented in this encounter Care Teams Water Rights Specialist Relationship Specialty Start Date End Date Linda Ornelas MD [address] [place] [address] PCP - General Family Medicine 05/02/20 documented as of this encounter
== END 2025-03-29 18:05 | disposition left against medical advice (07) ==
PROVIDERS: Emergency Provider Emergency Medicine; PCP Family Medicine
DX: M54.50 Low back pain, unspecified (principal); Z53.21 Procedure and treatment not carried out due to patient leaving prior to being seen by health care provider
CPT/HCPCS: 99281

== ENCOUNTER 2025-04-09 14:36 | Outpatient (REF) | payer OTHER, SELFPAY ==
--- OUTSIDE RECORDS SUMMARY | 2025-04-09 14:38 | XMS_ITS | Encounter Summary ---
Author Organization [facility] Address [address] [place] [address] [address] [place] [address] Care Team Providers Care Technical Support Analyst Name Role Phone Linda Ornelas MD Primary Care Provider [phone] Encounter Details Date Type Department Care Team ([facility] Contact Info) Description 05/07/2023 Orders Only [facility] MED & PEDS [address] [place] [address] Lakesha Saravia LPN Social History Tobacco Use [...] Description 04/22/2025 11:30 AM EDT Office Visit [facility] CHC MED & PEDS [address] [place] [address] Nae Quiroz MD [address] [place] [address] documented as of this encounter Visit Diagnoses Not on filedocumented in this encounter Care Teams Technical Support Analyst Relationship Specialty Start Date End Date Linda Ornelas MD [address] [place] [address] PCP - General Family Medicine 05/02/20 documented as of this encounter
== END 2025-04-09 14:37 | disposition home or self-care (01) ==
LOC: HO.MAMMO 14:36
PROVIDERS: PCP Family Medicine; Visit Provider Family Medicine
DX: Z12.31 Encounter for screening mammogram for malignant neoplasm of breast (principal)
CPT/HCPCS: 77063; 77067

== ENCOUNTER → 2025-04-09 15:15 | Outpatient (BNV) | payer OTHER, SELFPAY | PROVIDERS: PCP Family Medicine; Visit Provider Radiology Body Imaging | DX: Z12.31 Encounter for screening mammogram for malignant neoplasm of breast (principal) | CPT/HCPCS: 77063; 77067 ==

== ENCOUNTER 2025-04-26 13:20 | Outpatient (REF) | payer OTHER, SELFPAY ==
--- OUTSIDE RECORDS SUMMARY | 2025-04-26 13:00 | XMS_ITS | Encounter Summary ---
Author Organization [employer] Address [address] [facility] [address] [place] [address] Care Team Providers Care Railway Switch Operator Name Role Phone Linda Ornelas MD Primary Care Provider [phone] Reason for Visit * Reason Comments Follow-up Encounter Details Date Type Department Care Team ([facility] Contact Info) Description 04/26/2025 1:00 PM EDT Office Visit [facility] MED & PEDS [address] [place], [place] [phone] Linda Ornelas MD [address] [place] [address] Essential hypertension (Primary Dx); Bloating; Lumbar back pain; Chronic LLQ pain; Encounter for immunization Social History Tobacco Use Types Packs/Day Years [...] Access Answer Date Recorded Internet Access Q1 No 04/14/2025 Internet Access Q2 I cannot afford it 04/14/2025 Comments Unknown Sex and Gender Information Value Date Recorded Sex Assigned at Female 07/02/2022 10:15 AM EDT Legal Sex Female 10:15 AM EDT Gender Identity Female 07/02/2022 10:15 AM EDT Sexual Orientation Choose not to disclose 2021 10:15 AM EDT documented as of this encounter Last Filed Vital Signs Vital Sign Reading Time Taken Comments Blood Pressure 151/96 04/26/2025 12:47 PM EDT Pulse 66 04/26/2025 12:47 PM EDT Temperature 36.3 C (97.4 F) 04/26/2025 12:47 PM EDT Respiratory Rate 20 04/26/2025 12:47 PM EDT Oxygen Saturation 99% 04/26/2025 12:47 PM EDT Inhaled Oxygen Concentration - - Weight 66 kg (145 lb 9.6 oz) 04/26/2025 12:47 PM EDT Height 154 cm (5' 0.63 ) 04/26/2025 12:47 PM EDT Body Mass Index 27.85 04/26/2025 12:47 PM EDT documented in this encounter Progress Notes * Linda Ornelas MD - 04/26/2025 1:00 PM EDT Subjective Patient ID: Leny Russo is a 60 y.o. female who presents for Follow-up. History of Present Illness Leny Russo is a 60-year-old female with a history of hypertension presenting with lower back pain and right inguinal discomfort. The patient reports experiencing lower back pain that is not constant but noticeable, particularly after sitting for extended periods (20-30 minutes). She describes the pain as mild and not breathtaking, but it becomes apparent when she stands up after prolonged sitting. Additionally, she mentions feeling discomfort and tingling in her right inguinal area. Regarding her hypertension, the patient states her blood pressure has recently been elevated, reaching up to 110, 120, and 130. She admits to not taking her blood pressure medication due to fasting for laboratory tests. The patient also reports feeling some abdominal discomfort, which she associates with gas. The patient mentions maintaining regular bowel movements lately, attributing this to feeling well. She uses natural remedies like fruits (pears and plums) to manage her constipation, consuming 3-4 ofthese nightly. Medical History - Hypertension, with recent readings up to 110-130 mmHg - Lower back pain, exacerbated by prolonged sitting - Inguinal discomfort and tingling on the right side Medications and Supplements - Blood pressure medication - Patient reports not taking it due to fasting for laboratory tests Social History - Living Situation: Lives with [id number], whom patient considers like [id number] - Family Structure: Has no children of her own - Hobbies: Engages in some form of play or games Immunizations - Tetanus: Patient reports not having received this vaccine Review of Systems General: Positive for fatigue. Cardiovascular: Positive for hypertension. Gastrointestinal: Positive for constipation. Genitourinary: Positive for inguinal discomfort and tingling. Musculoskeletal: Positive for lower back pain with prolonged sitting and upon standing. Review of Systems Objective Visit Vitals BP (!) 151/96 Pulse 66 Temp 97.4 ??F (36.3 ??C) (Oral) Resp 20 Ht 5' 0.63 (1.54 m) Wt 145 lb 9.6 oz (66 kg) SpO2 99% BMI 27.85 kg/m?? Smoking Status Never BSA 1.68 m?? Physical Exam Constitutional: General: She is not in acute distress. Appearance: She is not ill-appearing. HENT: Head: Normocephalic and atraumatic. Nose: No congestion. Pulmonary: Effort: Pulmonary effort is normal. No respiratory distress. Breath sounds: Normal breath sounds. Abdominal: General: Bowel sounds are normal. Tenderness: There is abdominal tenderness in the left lower quadrant. There is no right CVA tenderness, left CVA tenderness, guarding or rebound. Negative signs include Lee's sign. Hernia: No hernia is present. Musculoskeletal: Cervical back: Normal range of motion. Lumbar back: Spasms and tenderness present. No bony tenderness. Normal range of motion. Negative right straight leg raise test and negative left straight leg raise test. Right hip: Normal. No tenderness. Normal range of motion. Normal strength. Left hip: Normal. No tenderness. Normal range of motion. Normal strength. Neurological: General: No focal deficit present. Mental Status: She is alert. Psychiatric: Mood and Affect: Mood normal. Assessment/Plan Diagnosis Plan 1. Essential hypertension CBC auto differential Comprehensive Metabolic Panel Lipid Panel, Standard TSH W/Reflex to FT4 Urinalysis with reflex microscopic CBC auto differential Comprehensive Metabolic Panel Lipid Panel, Standard TSH W/Reflex to FT4 Urinalysis with reflex microscopic 2. Bloating 3. Lumbar back pain XR Lumbar Spine Complete 4+ Views XR Lumbar Spine Complete 4+ Views 4. Chronic LLQ pain 5. Encounter for immunization TDAP VACCINE 7 yrs + Leny Russo is a 60-year-old female with a history of hypertension presenting with lower back pain, right inguinal discomfort, and abdominal issues. Lower back pain Assessment: Patient reports intermittent lower back pain, particularly noticeable after prolonged sitting. Pain is described as mild and not severe enough to cause breathlessness. Physical examination revealed paraspinal tenderness and negative straight leg raise test. Given the presentation and exa mination findings, differential diagnoses include muscular strain, sacroiliitis, or possible early degenerative changes. Plan: - Order lumbar spine X-ray to rule out bony abnormalities - Refer for physical therapy for back exercises and pain management - Recommend [id number] pain relievers as needed - Follow up in 3 months or sooner if symptoms worsen - Consider CT scan if symptoms persist or worsen despite conservative management Right inguinal discomfort Assessment: Patient reports discomfort and tingling sensation in the right inguinal area. Physical examination revealed tenderness in the region. Given the location and symptoms, differential diagnoses include inguinal hernia, lymphadenopathy, or referred pain from the back or hip. Plan: - Monitor symptoms - Reassess at follow-up appointment in 3 months - Consider further imaging if symptoms persist or worsen Hypertension Assessment: Patient has a history of hypertension with recent self-reported blood pressure readingsup to 110 mmHg. Patient admits to not taking antihypertensive medication due to fasting for laboratory tests. Previous clinical visit showed controlled blood pressure. Plan: - Resume antihypertensive medication as previously prescribed - Educate patient on importance of medication adherence, even when fasting for lab tests - Patient to monitor blood pressure at home - Follow up in 3 months with blood pressure check prior to appointment Abdominal discomfort Assessment: Patient reports intermittent abdominal discomfort. Previous imaging showed constipation. Patient reports improved regularity with dietary changes, including increased fruit intake. Physical examination revealed soft abdomen. Differential diagnoses include irritable bowel syndrome, diverticulosis, or functional gastrointestinal disorder. Plan: - Continue current dietary modifications with high-fiber foods and adequate hydration - Monitor symptoms - Consider further imaging if symptoms persist or worsen Immunization status Assessment: Patient's immunization status is not up to date. Specifically, tetanus vaccination is overdue. Plan: - Administer tetanus vaccine during current visit - Educate patient on possible side effects: arm soreness, fatigue for 2-3 days post-vaccination - Update immunization records documented in this encounter Plan of Treatment Scheduled Orders Name Type Priority Associated Diagnoses Orde r Schedule Comprehensive Metabolic Panel Lab Routine Essential hypertension Expected: 04/26/2025 (Approximate), Expires: 04/26/2026 Lipid Panel, Standard Lab Routine Essential hypertension Expected: 04/26/2025 (Approximate), Expires: 04/26/2026 TSH W/Reflex to FT4 Lab Routine Essential hypertension Expected: 04/26/2025 (Approximate), Expires: 04/26/2026 Urinalysis with reflex microscopic Lab Routine Essential hypertension Expected: 04/26/2025, Expires: 04/26/2026 XR Lumbar Spine Complete 4+ Views Imaging Routine Lumbar back pain Expected: 04/26/2025, Expires: 04/26/2026 documented as of this encounter Procedures Procedure Name Priority Date/Time Associated Diagnosis Comments CBC WITH AUTO DIFFERENTIAL Routine 04/26/2025 1:22 PM EDT Essential hypertension documented in this encounter Results * CBC auto differential (04/26/2025 1:22 PM EDT) White Blood Count 7.2 4.8 - 10.8 X10*3/uL [facility] Red Blood Count 4.32 4.20 - 5.50 X10*6/uL [facility] Hemoglobin 13.9 12.0 - 16.0 g/dl [facility] Hematocrit 41.4 37.0 - 47.0 % [facility] Mean Corpuscular Volume 95.8 80.0 - 98.0 fL [facility] Mean Corpuscular Hemoglobin 32.2 27.0 - 33.0 pg [facility] Mean Corpuscular HGB Conc 33.6 31.0 - 35.0 g/dl [facility] Red Cell Distribution Width 12.4 11.0 - 16.0 % [facility] Platelet Count 252 160 - 400 X10*3/uL [facility] Mean Platelet Volume 11.8 9.4 - 12.3 fL [facility] Neutrophils Percent Auto 60.6 45 - 73 % [facility] Imm Gran Pct Auto 0.1 0.0 - 0.4 % [facility] Lymphocytes Percent Auto 30.3 20 - 40 % [facility] Monocytes Percent Auto 6.9 2 - 11 % [facility] Eosinophils Percent Auto 1.7 0 - 4 % [facility] Basophils Percent Auto 0.4 0 - 2 % [facility] NRBC Pct Auto 0.0 0.0 - 0.2 /100WBC [facility] Neutrophils Absolute Auto 4.3 2.0 - 8.3 x10*3/uL [facility] Imm Gran Abs Auto 0.01 0.00 - 0.03 X10*3/uL [facility] Lymphocytes Absolute Auto 2.2 1.2 - 4.9 X10*3/uL [facility] Monocytes Absolute Auto 0.5 0.1 - 1.2 X10*3/uL [facility] Eosinophils Absolute Auto 0.1 0.0 - 0.4 X10*3/uL [facility] Basophils Absolute Auto 0.0 0.0 - 0.2 X10*3/uL [facility] NRBC Abs Auto 0.000 0.0 - 0.012 X10*3/uL [facility] Blood Venous blood specimen / Unknown 04/26/2025 1:22 PM EDT 04/26/2025 2:10 PM EDT us Linda Ornelas MD LAB BLOOD ORDERABLES Final Re sult [facility] [address] [place] [address] [phone] documented in this encounter Visit Diagnoses Diagnosis Essential hypertension- Primary Unspecified essential hypertension Bloating Flatulence, eructation, and gas pain Lumbar back pain Lumbago Chronic LLQ pain Abdominal pain, left lower quadrant Encounter for immunization documented in this encounter Additional Health Concerns Assessment Noted Time PHQ-9 Depression Total Score: 0 04/27/20 24 1:12 PM EDT documented as of this encounter Care Teams Railway Switch Operator Relationship Specialty Start Date End Date Linda Ornelas MD [address] [place] [address] PCP - General Family Medicine 05/02/20 documented as of this encounter
[2025-04-26 14:15] LABS: MANUAL DIFF FLAG NO
[2025-04-26 14:21] LABS: Hematocrit 41.4 % (37.0-47.0); Hemoglobin 13.9 g/dl (12.0-16.0); Imm Gran Abs Auto 0.01 X10*3/uL (0.00-0.03); Imm Gran Pct Auto 0.1 % (0.0-0.4); Lymphocytes Absolute Auto 2.2 X10*3/uL (1.2-4.9); Mean Corpuscular HGB Conc 33.6 g/dl (31.0-35.0); Mean Corpuscular Hemoglobin 32.2 pg (27.0-33.0); Mean Corpuscular Volume 95.8 fL (80.0-98.0); NRBC Abs Auto 0.000 X10*3/uL (0.0-0.012); NRBC Pct Auto 0.0 /100WBC (0.0-0.2); Platelet Count 252 X10*3/uL (160-400); Red Blood Count 4.32 X10*6/uL (4.20-5.50); White Blood Count 7.2 X10*3/uL (4.8-10.8)
--- OUTSIDE RECORDS SUMMARY | 2025-04-26 14:41 | XMS_ITS | Encounter Summary ---
Author Organization [employer] Address [address] [facility] [address] [place] [address] Care Team Providers Care Back Roll Lathe Operator Name Role Phone Linda Ornelas MD Primary Care Provider [phone] Reason for Visit * Reason Comments Med Refill Encounter Details Date Type Department Care Team (Late st Contact Info) Description 09/21/2022 Refill [facility] CH[facility] MED & PEDS [address] [place], [place] [phone] Linda Ornelas MD [address] [place] [address] Primary hypertension (Primary Dx) Social History Tobacco [...] as of this encounter Plan of Treatment Not on file documented as of this encounter Visit Diagnoses Diagnosis Primary hypertension- Primary Unspecified essential hypertension documented in this encounter Care Teams Back Roll Lathe Operator Relationship Specialty Start Date End Date Linda Ornelas MD [address] [place] [address] PCP - General Family Medicine 05/02/20 documented as of this encounter
--- OUTSIDE RECORDS SUMMARY | 2025-04-26 14:41 | XMS_ITS | Encounter Summary ---
Author Organization [employer] Address [address] [facility] [address] [place] [address] Care Team Providers Care Senior Sales Operations Manager Name Role Phone Linda Ornelas MD Primary Care Provider [phone] Encounter Details Date Type Department Care Team (Late st Contact Info) Description 05/07/2023 Orders Only [facility] CH[facility] MED & PEDS [address] [place] [address] Lakesha Saravia LPN Social History Tobacco Use [...] on filedocumented in this encounter Care Teams Senior Sales Operations Manager Relationship Specialty Start Date End Date Linda Ornelas MD [address] [place] [id number] PCP - General Family Medicine 05/02/20 documented as of this encounter
--- OUTSIDE RECORDS SUMMARY | 2025-04-26 14:41 | XMS_ITS | Encounter Summary ---
Author Organization [employer] Address [address] [facility] [address] [place] [id number] Care Team Providers Care Supervisor [employer] Name Role Phone Linda Ornelas MD Primary Care Provider [phone] Encounter Details Date Type Department Care Team (Latest Contact Info) Description 04/26/2025 Travel Social History Tobacco Use Types Packs/Day [...] documented as of this encounter Care Teams Supervisor [employer] Relationship Specialty Start Date End Date Linda Ornelas MD [address] [place] [id number] PCP - General Family Medicine 05/02/20 documented as of this encounter
--- OUTSIDE RECORDS SUMMARY | 2025-04-26 14:41 | XMS_ITS | Clinical Summary ---
Author Organization [employer] Address [address] [facility] 7[address] [place] [address] Care Team Providers Care Salvager Name Role Phone Linda Ornelas MD Primary Care Provider Allergies Active Allergy Reactions Criticality Noted Date Comments Joseph Inhibitors Cough 09/06/2010 Medications cetirizine (ZyrTEC) 10 MG tablet TOME JONA TABLETA TODOS LOS D CUANDO SEA NECESARIO 3 Active hydrocortisone 1 % cream APPLY TOPICALLY TWICE DAILY TO AFFECGTED AREA 28 g 1 3 Active valACYclovir (Valtrex) 500 MG tablet Take 1 tablet by mouth every 12 (twelve) hours. 0 Active atorvastatin (Lipitor) 40 MG tabletIndications: Mixed hyperlipidemia TOME JONA TABLETA TODOS LOS [place] EN LA MANANA 90 tablet 1 4 Active hydrocortisone (Anusol-HC) 2.5 % rectal cream Insert into the rectum 2 times daily. 90 g 4 Active chlorthalidone (Hygroton) 25 MG tabletIndications: Primary hypertension TOME 1 TABLETA POR VIA ORAL TODOS LOS [place] 90 tablet 1 5 Active verapamil SR (Calan SR) 240 MG ER tablet TAKE 1 TABLET BY MOUTH AT BEDTIME. DO NOT CRUSH OR CHEW. 90 tablet 1 5 Active magnesium oxide (Mag-Ox) 400 (240 Mg) MG tablet Take 1 tablet (400 mg) by mouth Once per day. 30 tablet 11 5 Active Active Problems Problem Noted Date Diagnosed Date [...] Encounters Date Type Department Care Team Description 04/26/2025 1:00 PM EDT Office Visit [facility] [address] [place] [address] Linda Ornelas MD Essential hypertension (Primary Dx); Bloating; Lumbar back pain; Chronic LLQ pain; Encounter for immunization 04/26/2025 Travel 2025 Patient Outreach [facility] [address] [place] [phone] Linda Ornelas MD Pre-visit Planning (Pre visit planning unable to LVM ) 04/15/2025 Telephone [facility] [address] [place] [address] Linda Ornelas MD chart prep 04/14/2025 Patient Outreach [facility] [address] [place] [phone] Linda Ornelas MD Pre-visit Planning (SDOH screening negative and Tobacco screening negative) 04/09/2025 Orders Only [facility] [address] [place] [address] Linda Ornelas MD from Last 3 Months Immunizations Immunization Administration Dates Next Due Influenza Injectable Quadriv alant Preservative Free IIV4 MDCK 05/31/2022 Influenza injectable quadriv alent preservative free 06/06/2021,07/02/2020,09/24/2018 Influenza, IIV3, injectable 07/22/2014, 1,07/07/2010 Influenza, Split (incl. drake fied surface antigen) 06/09/2013 Tdap 04/26/2025,07/18/2011 Zoster, Recombinant 03/26/2022 Social History Tobacco Use [...] Mass Index 27.85 04/26/2025 12:47 PM EDT Plan of Treatment Health Maintenance Due Date Last Done Comments CT Colonography 1965 Colonoscopy 1965 FIT 1965 FOBT 1965 Sigmoidoscopy 1965 Pneumococcal Vaccine: 50+ Years (1 of 1 - PCV) 2013 COVID-19 Vaccine ( - season) 2024 Depression Screening 04/27/2025 04/27/2024, 04/27/20 24 Influenza Vaccine (#1) 2025 , 06/06/2021, 07/02/2020, Additional history exists Pap Smear 10/29/2025 10/29/2022, 09/16/2019 SDOH Screening 04/14/2026 04/14/2025 Alcohol/Substance Use Screening 04/26/2026 04/26/2025 Disability Screening 04/26/2026 04/26/2025 Tobacco Screening 04/26/2026 04/26/2025 Zoster Vaccines (2 of 2) 04/26/2026 03/26/2022 Pos tponed from 05/21/2022 (Patient Refused) Colorectal Cancer Screening 08/13/2026 FIT DNA/Cologuard 08/13/2026 08/13/2023 Mammogram 04/09/2027 04/09/2025, 0709/2023, 03/11/2023, Additional history exists Cervical Cancer Screening 10/29/2027 HPV/Cotest 10/29/2027 10/29/2022, 09/16/2019 Lipid Panel 05/05/2029 05/05/2024, 07/04, 07/23/2022, Additional history exists DTaP/Tdap/Td Vaccines (3 - Td or Tdap) 04/26/2035 04/26/2025, 07/18/2011 RSV Patients and Patients Aged 60 years [...] Routine 04/26/2025 1:22 PM EDT Essential hypertension BI MAMMOGRAM SCREENING TOMOSYNTHESIS BILATERAL Routine 04/09/2025 2:40 PM EDT LIPID PANEL, STANDARD Routine 05/05/2024 11:47 AM EDT Hyperlipidemia, unspecified hyperlipidemia type HEPATITIS C AB W/REFL TO HCV RNA, QN, PCR Routine 08/29/2023 3:05 PM EST Encounter for health-related screening HIV 1/2 ANTIGEN/ANTIBODY, FOURTH GENERATION W/RFL Routine 08/29/2023 3:05 PM EST Encounter for health-related screening LAB COLOGUARD COLON CANCER SCREEN Routine 08/13/2023 8:00 AM EST Colon cancer screening IMAGE-GUIDED PAP W/AGE BASED SCR PROTOCOLS Routine 10/29/2022 10:03 AM EST from Last 3 Months or Most Recently Relevant to Health Maintenance Results * CBC auto differential (04/26/2025 1:22 PM EDT) White Blood Count 7.2 4.8 - 10.8 X10*3/uL [facility] Red Blood Count 4.32 4.20 - 5.50 X10*6/uL [facility] Hemoglobin 13.9 12.0 - 16.0 g/dl [facility] Hematocrit 41.4 37.0 - 47.0 % [facility] Mean Corpuscular Volume 95.8 80.0 - 98.0 fL [facility] Mean Corpuscular Hemoglobin 32.2 27.0 - 33.0 pg [facility] Mean Corpuscular HGB Conc 33.6 31.0 - 35.0 g/dl [facility] Red Cell Distribution Width 12.4 11.0 - 16.0 % [facility] Platelet Count 252 160 - 400 X10*3/uL [facility] Mean Platelet Volume 11.8 9.4 - 12.3 fL [facility] Neutrophils Percent Auto 60.6 45 - 73 % [facility] Imm Gran Pct Auto 0.1 0.0 - 0.4 % [facility] Lymphocytes Percent Auto 30.3 20 - 40 % [facility] Monocytes Percent Auto 6.9 2 - 11 % [facility] Eosinophils Percent Auto 1.7 0 - 4 % [facility] Basophils Percent Auto 0.4 0 - 2 % [facility] NRBC Pct Auto 0.0 0.0 - 0.2 /100WBC [facility] Neutrophils Absolute Auto 4.3 2.0 - 8.3 x10*3/uL [facility] Imm Gran Abs Auto 0.01 0.00 - 0.03 X10*3/uL [facility] Lymphocytes Absolute Auto 2.2 1.2 - 4.9 X10*3/uL [facility] Monocytes Absolute Auto 0.5 0.1 - 1.2 X10*3/uL [facility] Eosinophils Absolute Auto 0.1 0.0 - 0.4 X10*3/uL [facility] Basophils Absolute Auto 0.0 0.0 - 0.2 X10*3/uL [facility] NRBC Abs Auto 0.000 0.0 - 0.012 X10*3/uL [facility] Blood Venous blood specimen / Unknown 04/26/2025 1:22 PM EDT 04/26/2025 2:10 PM EDT Linda Ornelas MD LAB BLOOD ORDERABLES Final Re sult [facility] [address] [place] [address] [phone] * BI Mammogram Screening Tomosynthesis Bilateral (04/09/2025 2:40 PM EDT) Anatomical Region Laterality Modality Breast Bilateral Mammography 04/09/2025 2:40 PM EDT Narrative 04/19/2025 10:34 AM EDT [address] [place] [address] Mammography Report Signed Patient: Leny Russo MR#: [id number] : 1965 Acct:[id number] Age/Sex: 59 / F ADM Date: 04/09/25 Loc: HO.MAMMO Attending Dr: Linda Ornelas MD Ordering Physician: Linda Ornelas MD Results: 1Nega tive Date of Service: 04/09/25 Follow Up: 1 Year From [facility] Mammogram Procedure(s): MM tomosynthesis screening BI Accession Number(s): [id number] cc: Linda Ornelas MD EXAMINATION: MM SCREENING DIGITAL BREAST TOMOSYNTHESIS, BILATERAL CLINICAL INFORMATION: Screening. Asymptomatic. COMPARISON: Comparison made to multiple prior, most recent March 12, 2024, and most remote February 17, 2020. TECHNIQUE: Digital breast tomosynthesis is performed in both the craniocaudal and mediolateral oblique views along with computer-aided detection (CAD). FINDINGS: BREAST COMPOSITION: There are scattered areas of fibroglandular density (ACR BI-RADS breast composition Category b). BILATERAL BREASTS: No significant masses, suspicious calcifications or other abnormalities are seen in either breast. MM/MM tomosynthesis screening BI IMPRESSION: BILATERAL BREASTS: Negative, no mammographic evidence of malignancy. Normal interval follow-up is recommended in 12 months. ASSESSMENT: BI-RADS 1 - Negative RECOMMENDATION: Routine annual mammography screening. FOLLOW-UP: 1 year F/U This examination should not preclude the clinical evaluation of a suspicious palpable abnormality. This patient's information was entered into a reminder system with a target due date for their next mammogram. Electronically signed by: Jill Ruffin MD 04/19/2025 10:32 AM EDT RP Dictated By: Jill Ruffin MD Signed By: <Electronically signed by Jill Ruffin MD in OV> 04/19/25 1032 DD/ 1440 TD/TT: 04/09/25 1459 Construction Trades Teacher: Procedure Note Donotuseinterpreter, Image - [facility]19/20[facility] [address] [place] [address] Mammography Report Signed Patient: Andrea Russo#: [id number] : 1965Acct:[id number] Age/Sex: 59 / FADM Date: 04/09/25 Loc: HO.MAMMO Attending Dr: Linda Ornelas MD Ordering Physician: Linda Ornelas MDResults: 1Nega tive Date of Service: 04/09/25Follow Up: 1 Year From [facility] Mammogram Procedure(s): MM tomosynthesis screening BI Accession Number(s): [id number] cc: Linda Ornelas MD EXAMINATION: MM SCREENING DIGITAL BREAST TOMOSYNTHESIS, BILATERAL CLINICAL INFORMATION: Screening. Asymptomatic. COMPARISON: Comparison made to multiple prior, most recent March 12, 2024, and most remote February 17, 2020. TECHNIQUE: Digital breast tomosynthesis is performed in both the craniocaudal and mediolateral oblique views along with computer-aided detection (CAD). FINDINGS: BREAST COMPOSITION: There are scattered areas of fibroglandular density (ACR BI-RADS breast composition Category b). BILATERAL BREASTS: No significant masses, suspicious calcifications or other abnormalities are seen in either breast. MM/MM tomosynthesis screening BI IMPRESSION: BILATERAL BREASTS: Negative, no mammographic evidence of malignancy. Normal interval follow-up is recommended in 12 months. ASSESSMENT: BI-RADS 1 - Negative RECOMMENDATION: Routine annual mammography screening. FOLLOW-UP: 1 year F/U This examination should not preclude the clinical evaluation of a suspicious palpable abnormality. This patient's information was entered into a reminder system with a target due date for their next mammogram. Electronically signed by: Jill Ruffin MD 04/19/2025 10:32 AM EDT RP Dictated By: Jill Ruffin MD Signed By: <Electronically signed by Jill Ruffin MD in OV> 04/19/25 1032 DD/ 1440 TD/TT: 04/09/25 1459 Construction Trades Teacher: us Linda Ornelas MD IMG BI PROCEDURES Final Resul t * (ABNORMAL) Lipid Panel, Standard (05/05/2024 11:47 AM EDT) Triglycerides 99 <150 mg/dL [facility] Comment:Desirable Triglyceri de: less than 150 mg/dLBorderline High Triglyceride 150-199 mg/dLHigh Triglyceride: 200-499 mg/dLVery High Triglyceride: greater than or equal to 5OO mg/dL Cholesterol 227(H) <200 mg/dL [facility] Comment:Desirable Cholestero l: less than 200 mg/dLBorderline High Cholesterol: 200-239 mg/dLHigh Cholesterol: greater than 239 mg/dL LDL Cholesterol Calculated 160(H) <100 mg/dL [facility] Comment:Desirable LDL: less than 100 mg/dLNear Optimal/Above Optimal LDL: 110- 129 mg/dLBorderline High LDL: 130-159 mg/dLHigh LDL: 160-189 mg/dLVery High LDL: greater than or equal to 190 mg/dL HDL Cholesterol 48 >40 mg/dL [facility] Comment:Desirable HDL: great er than 40 mg/dL Note: This HDL assay may give artificially low results in patients with liver disease. Blood Venous blood specimen / Unknown 05/05/2024 11:47 AM EDT 05/05/2024 2:40 PM EDT Linda Ornelas MD LAB BLOOD ORDERABLES Final Re sult Performing Organization Address [facility]/ZIP Co de Phone Number [facility] [address] [place] [phone] * Hepatitis C Antibody with Reflex to HCV, RNA, Quantitative, Real-Time PCR (08/29/2023 3:05 PM EST) Hepatitis C Antibody Nonreactive Nonreactive [facility] Comment:Antibodies to HCV no t detected; does not exclude early acuteHCV infection. Blood Venous blood specimen / Unknown 08/29/2023 3:05 PM EST 08/29/2023 5:57 PM EST Linda Ornelas MD LAB BLOOD ORDERABLES Final Re sult Performing Organization Address [facility] Co de Phone Number [facility] [address] [place] [phone] * HIV-1/2 Antigen and Antibodies, Fourth Generation, with Reflexes (08/29/2023 3:05 PM EST) HIV AB/AG Nonreactive Nonreactive [facility] Comment:HIV-1 p24 Ag and/or HIV-1/HIV-2 Ab not detected.A test result that is nonreactive does not exclude thepossibility of exposure to or infection with HIV-1 and/orHIV-2. Nonreactive results in this assay for individualswith prior exposure to HIV-1 and/or HIV-2 may be due toantigen and antibody levels that are below the limit ofdetection of this assay.The [employer]Superstore.ComniTasted Menu HIV Ag/Ab Combo assay result andsupplemental assay results should be interpreted inconjunction with the patient's clinical presentation,history and other laboratory results. If the results areinconsistent with clinical evidence, additional testing issuggested to confirm the result. Blood Venous blood specimen / Unknown 08/29/2023 3:05 PM EST 08/29/2023 5:57 PM EST us Linda Ornelas MD LAB BLOOD ORDERABLES Final Re sult [facility] [address] [place] [address] [phone] * Cologuard?? colon cancer screening (08/13/2023 8:00 AM EST) Cologuard Result Negative Negative 08/21/20 1:34 AM EST [facility] (CLIA #:[id number]) Comment: NEGATIVE TEST RESULT. A negative Cologuard result indicates a low likelihood that a colorectal cancer (CRC) or advanced adenoma (adenomatous polyps with more advanced pre-malignant features) is present. The chance that a person with a negative Cologuard test has a colorectal cancer is less than 1 in 1500 (negative predictive value >99.9%) or has an advanced adenoma is less than 5.3% (negative predictive value 94.7%). These data are based on a prospective cross-sectional study of 10,000 individuals at average risk for colorectal cancer who were screened with both Cologuard and colonoscopy. (Kaykay Siegel et al, N Engl J Med 2014;370(14):5591-7355) The normal value (reference range) for this assay is negative. COLOGUARD RE-SCREENING RECOMMENDATION: Periodic colorectal cancer screening is an important part of preventive healthcare for asymptomatic individuals at average risk for colorectal cancer. Following a negative Cologuard result, the [place] [employer] and U.S. Multi-Society Task Force screening guidelines recommend a Cologuard re-screening interval of 3 years. References: [place] [employer] Guideline for Colorectal Cancer Screening: https://www.cancer.org/cancer/kjyee-rtwday-vdydos/yrzaxmsnc-omhfnkfcw-fzkhkiy/ac s-rec ommendations.html.; Aj SAUER, Sanford PALMER, Ian FOX, Colorectal Cancer Screening: Recommendations for Physicians and Patients from the U.S. Multi-Society Task Force on Colorectal Cancer Screening , Am J Gastroenterology 2017; 112:3326-9941. TEST DESCRIPTION: Composite algorithmic analysis of stool DNA-biomarkers with hemoglobin immunoassay. Quantitative values of individual biomarkers are not [...] screened with both Cologuard and colonoscopy. (Kaykay Siegel et al, N Engl J Med 2014;370(14):5074-4528.) Cologuard may produce a false negative or false positive result (no colorectal cancer or precancerous polyp present at colonoscopy follow up). A negative Cologuard test result does not guarantee the absence of CRC or advanced adenoma (pre-cancer). The current Cologuard screening interval is every 3 years. ([place] [employer] and U.S. Multi-Society Task Force). Cologuard performance data in a 10,000 patient pivotal study using colonoscopy as the reference method can be accessed at the following location: www.Paydiant.[employer]/results. Additional description of the Cologuard test process, warnings and precautions can be found at www.Veodin.com. Stool specimen (specimen) 08/13/2023 8:00 AM EST 08/14/2023 8:29 PM EST us Linda Ornelas MD LAB MOLECULAR DIAGNOSTICS ORD ERABLES Final Result [facility] (CLIA #:[id number]) [address] [place] [address], * Image-Guided Pap with Age-Based Screening Protocols (10/29/2022 10:03 AM EST) Comment [facility] Comment: This order for age-based cervical cancer and STI screening follows ACOG guidelines(PB 168, 140, HHQ952). See individual assays for performing site location. Clinical Information: None given [facility] LMP: NONE GIVEN [employer] [facility] [facility] Prev. PAP: NONE GIVEN [facility] Prev. BX: NONE GIVEN [facility] SOURCE: None given [employer] Statement Of Adequacy: [employer] Comment: Satisfactory for evaluation. Endocervical/transformation zone component present. Interpretation/ Result: Negative for intraepithelial lesion or malignancy. [employer] COMMENT: This Pap test has been evaluated with computer assisted technology. [employer] Cytotechnologis t: [facility] Comment: [place], CT(ASCP) CT screening location: [place] [address] (Always Message) [employer] Comment: EXPLANATORY NOTE: The Pap is a [...] HPV nRNA E6/E7 Not Detected Not Detected [facility] Comment: Methodology: Special Effects Technician-Mediated Amplification This assay detects E6/E7 viral messenger RNA (mRNA) from 14 high-risk HPV types (16,18,31,33,35,39,45,51,52,56,58,59,66,68). Cervical sources are required for HPV testing. If a vaginal source from a patient who has had a total hysterectomy with removal of cervix was submitted, please contact the testing laboratory for alternative testing options. For additional information, please refer to http://education.Tongtech/faq/TTV742w6 (This link if provided for information/ educational purposes only.) 10/29/2022 10:0 3 AM EST 10/31/2022 8:30 AM EST Narrative [facility] - 11/02/2022 10:15 AM EST FASTING: UNKNOWN us Nubia Arrington CNM LAB BLOOD ORDERABLES Bella l Result [facility] [address], [address], [place] [address] [employer] [facility] [address], ([address]) [place] [phone] from Last 3 Months or Most Recently Relevant to Health Maintenance Insurance [facility] 63 Care Teams Salvager Relationship Specialty Start Date End Date Linda Ornelas MD [address] [place] [address] PCP - General Family Medicine 05/02/20
[2025-04-26 14:50] LABS: Alanine Aminotransferase 26 U/L (0-31); Albumin Level 4.3 g/dL (3.5-5.0); Alkaline Phosphatase 67 U/L (39-117); Anion Gap 11 (12-20); Aspartate Amino Transferase 29 U/L (5-31); Blood Urea Nitrogen 10 mg/dL (9-16); Calcium 9.3 mg/dL (8.4-10.2); Carbon Dioxide 29 mmol/L (22-29); Chloride 104 mmol/L (96-108); Cholesterol 235 mg/dL (<200); Estimated Glomerular Filt Rate > 60; HDL Cholesterol 45 mg/dL (>40); Potassium 3.3 mmol/L (3.3-5.1); Sodium 141 mmol/L (135-145); Total Protein 7.2 g/dL (6.5-8.0); Triglycerides 88 mg/dL (<150)
[2025-04-26 17:53] LABS: Appearance Urine Clear; Glucose Urine UA Negative (Negative); PH 6.0 (5.0-9.0); Specific Gravity - Urine 1.025 (1.005-1.025); UMIC TRIGGER UACC YES
[2025-04-26 18:07] LABS: UACC Culture Trigger YES
== END 2025-04-26 13:21 | disposition home or self-care (01) ==
LOC: HO.CHCLDS 13:20
PROVIDERS: Visit Provider Family Medicine
DX: I10 Essential (primary) hypertension (principal)
CPT/HCPCS: 36415; 80053; 80061; 81001; 84443; 85025; 87086

== ENCOUNTER 2025-05-12 14:07 | Outpatient (REF) | payer OTHER, SELFPAY ==
--- OUTSIDE RECORDS SUMMARY | 2025-05-12 14:20 | XMS_ITS | Encounter Summary ---
Author Organization [employer] Address [address] [facility] 7[address] [place] [address] Care Team Providers Care Dietetic Tech Name Role Phone Linda Ornelas MD Primary Care Provider [phone] Reason for Visit * Reason Comments UTI Symptoms Encounter Details Date Type Department Care Team (Late st Contact Info) Description 05/12/2025 2:20 PM EDT Office Visit [facility] [address] [place] [address] [phone] Juan José Felipe MD [address] [place], [place] [phone] UTI symptoms (Primary Dx); Essential hypertension Social History Tobacco Use Types Packs/Day Years [...] Sign Reading Time Taken Comments Blood Pressure 138/76 05/12/2025 2:23 PM EDT Pulse 69 05/12/2025 2:23 PM EDT Temperature 36.9 C (98.5 F) 05/12/2025 2:23 PM EDT Respiratory Rate 18 05/12/2025 2:23 PM EDT Oxygen Saturation 97% 05/12/2025 2:23 PM EDT Inhaled Oxygen Concentration - - Weight 66.8 kg (147 lb 3.2 oz) 05/12/2025 2:23 P M EDT Height - - Body Mass Index 28.15 04/26/2025 12:47 PM EDT documented in this encounter Progress Notes * Juan José Felipe MD - 05/12/2025 2:20 PM EDT Subjective Patient ID: Leny Russo is a 60 y.o. female. Insurance Account Representative: Cesario KOROMA 4 days ago Leny had onset of urinary urgency, frequency, suprapubic discomfort when urinating. Denies fever, chills, n/v, vaginal discharge, abdominal or flank pain. Lives alone. [id number]. Not employed. Never smoked. Patient Active Problem List Diagnosis Date Noted Other hemorrhoids 04/27/2024 Hypokalemia 07/31/2023 Hyperlipidemia 04/27/2014 Constipation 06/09/2013 Allergic rhinitis 02/28/2012 Anxiety state 02/28/2012 Depressive disorder 02/28/2012 Essential hypertension 02/28/2012 The following portions of the chart were reviewed this encounter and updated as appropriate: Tobacco Allergies Meds Problems Med Hx Surg Hx Fam Hx Review of Systems Constitutional: Negative for fever. Respiratory: Negative for shortness of breath. Cardiovascular: Negative for chest pain. Gastrointestinal: Negative for abdominal pain. Genitourinary: Positive for dysuria, frequency and urgency. Negative for vaginal discharge. Skin: Negative for rash. Neurological: Negative for headaches. Objective Physical Exam Constitutional: Appearance: Normal appearance. HENT: Nose: Nose normal. Eyes: Conjunctiva/sclera: Conjunctivae normal. Pupils: Pupils are equal, round, and reactive to light. Cardiovascular: Rate and Rhythm: Normal rate and regular rhythm. Heart sounds: No murmur heard. Pulmonary: Effort: Pulmonary effort is normal. Breath sounds: Normal breath sounds. Abdominal: Tenderness: There is no abdominal tenderness. There is no right CVA tenderness or left CVA tenderness. Musculoskeletal: General: Normal range of motion. Cervical back: No tenderness. Skin: Findings: No rash. Neurological: Mental Status: She is alert. Gait: Gait is intact. Psychiatric: Mood and Affect: Mood normal. Behavior: Behavior normal. Procedures Assessment/Plan Diagnoses and all orders for this visit: UTI symptoms Urine C&S pending. Prescribed Macrobid. Return to clinic if not improving. - POCT urinalysis dipstick manually resulted - Culture, Urine, Routine Essential hypertension States home BP readings are in normal range, systolics usually 120 or below and diastolics 80 or below. Other orders - nitrofurantoin, macrocrystal-monohydrate, (Macrobid) 100 MG capsule; Take 1 capsule (100 mg) by mouth 2 times daily for 5 days. documented in this encounter Plan of Treatment Scheduled Orders Name Type Priority Associated Diagnoses Orde r Schedule Culture, Urine, Routine Microbiology Routine UTI symptoms Ordered: 05/12/2025 Culture, Urine, Routine Microbiology Routine UTI symptoms Expected: 05/12/2025 (Approximate), Expires: 05/12/2026 documented as of this encounter Procedures Procedure Name Priority Date/Time Associated Diagnosis Comments POCT URINALYSIS DIPSTICK Routine 05/12/2025 3:13 PM EDT UTI symptoms documented in this encounter Results * (ABNORMAL) POCT urinalysis dipstick manually resulted (05/12/2025 3:13 PM EDT) Color, UA Yellow Clarity, UA Clear Glucose, UA Negative Bilirubin, UA Negative Ketones, UA Positive Comment:Trace Spec Grav, UA 1.020 Blood, UA Positive(A) Negative, None Detected Comment:Trace-lysed pH, UA 6.5 Protein, UA Few 15 Comment:30 mg/dL Urobilinogen, UA 1.0 Leukocytes, UA Moderate(A) Negative, Rare, Trace Nitrite, UA Negative Negative, None Detected Urine 05/12/2025 3:13 PM EDT Juan José Felipe MD POINT OF CARE TEST ENTER/EDIT OR DERABLES Final Result documented in this encounter Visit Diagnoses Diagnosis UTI symptoms- Primary Essential hypertension Unspecified essential hypertension documented in this encounter Additional Health Concerns Assessment Noted Time PHQ-9 Depression Total Score: 0 04/27/20 24 1:12 PM EDT documented as of this encounter Care Teams Dietetic Tech Relationship Specialty Start Date End Date Linda Ornelas MD [address] [place] [address] PCP - General Family Medicine 05/02/20 documented as of this encounter
--- OUTSIDE RECORDS SUMMARY | 2025-05-13 17:55 | XMS_ITS | Encounter Summary ---
Author Organization [employer] Address [address] [facility] [address] [place] [address] Care Team Providers Care Nail Tech Name Role Phone Linda Ornelas MD Primary Care Provider [phone] Reason for Visit * Reason Onset Date Comments Nurse Triage 05/12/2025 Encounter Details Date Type Department Care Team ([facility] st Contact Info) Description 05/12/2025 Telephone C [facility] [address] [place] [address] Linda Ornelas MD [address] [place] [address] Nurse Triage Social History Tobacco Use Types Packs/Day Years [...] AM EDT documented as of this encounter Miscellaneous Notes * Telephone Encounter - Loretta James RN - 05/12/2025 10:05 AM EDT Triage call with [facility] [place] [id number], [place]. Pt reports urinary frequency for last 3 days. Pt will urinate and several minutes late will have togo the bathroom again with a sensation of not emptying the bladder. Pt denies burning but reports an irritation with urination. Pt has some low back pain, denies odor, blood in urine or fever. Pt reports drinking adequate amount of liquids. No available apts in [facility] this week. Pt is advised to come to [facility] today which is open till 8pm to be seen by provider. Pt is given address of facility and hours of operation. Pt agrees with this disposition and for home care is advised to continue to drink adequate liquids . Insurance is verified as active. Protocol Used: Urinary Symptoms (Adult) Protocol-Based Disposition: See in Office or Video Visit Today Video visit not offered Positive Triage Questions: * Side (flank) or lower back pain present * Urinating more frequently than usual (i.e., frequency) OR new-onset of the feeling of an urgent need to urinate (i.e., urgency) * All higher-acuity triage questions were negative Care Advice Discussed: * Reasons To Call Back - Fever occurs - Pain or burning with urination - Unable to urinate and bladder feels full - You become worse * Telephone Encounter - Emilee Shine - 05/12/2025 9:32 AM EDT Symptom: Urine Symptoms Outcome: Schedule a same-day appointment or talk to a nurse or provider today Reason: Caller denied all higher acuity questions The caller accepted this outcome. Contact pt at [phone] ([email or web address]) documented in this encounter Plan of Treatment Not on file documented as of this encounter Visit Diagnoses Not on filedocumented in this encounter Additional Health Concerns Assessment Noted Time PHQ-9 Depression Total Score: 0 04/27/20 24 1:12 PM EDT documented as of this encounter Care Teams Nail Tech Relationship Specialty Start Date End Date Linda Ornelas MD [address] [place] [address] PCP - General Family Medicine 05/02/20 documented as of this encounter
--- OUTSIDE RECORDS SUMMARY | 2025-05-13 17:55 | XMS_ITS | Encounter Summary ---
Author Organization [employer] Address [address] [facility] [address] [place] [address] Care Team Providers Care Hearing Aide Technician Name Role Phone Linda Ornelas MD Primary Care Provider [phone] Encounter Details Date Type Department Care Team (Late st Contact Info) Description 05/07/2023 Orders Only [facility] [address] [place] [address] Lakesha Saravia LPN Social History Tobacco Use [...] on filedocumented in this encounter Care Teams Hearing Aide Technician Relationship Specialty Start Date End Date Linda Ornelas MD [address] [place] [id number] PCP - General Family Medicine 05/02/20 documented as of this encounter
--- OUTSIDE RECORDS SUMMARY | 2025-05-13 17:55 | XMS_ITS | Encounter Summary ---
Author Organization [employer] Address [address] [facility] [address] [place] [address] Care Team Providers Care Traffic Manager Name Role Phone Linda Ornelas MD Primary Care Provider [phone] Reason for Visit * Reason Comments Med Refill Encounter Details Date Type Department Care Team (Late st Contact Info) Description 09/21/2022 Refill [facility] [address] [place], [place] [id number] Linda Ornelas MD [address] [place] [address] Primary hypertension (Primary Dx) Social History Tobacco [...] hypertension documented in this encounter Care Teams Traffic Manager Relationship Specialty Start Date End Date Linda Ornelas MD [address] [place] [address] PCP - General Family Medicine 05/02/20 documented as of this encounter
--- OUTSIDE RECORDS SUMMARY | 2025-05-13 17:55 | XMS_ITS | Clinical Summary ---
Author Organization [employer] Address [address] [facility] 7[address] [place] [address] Care Team Providers Care Detention Deputy Name Role Phone Linda Ornelas MD Primary Care Provider [phone] Allergies Active Allergy Reactions Criticality Noted Date [...] JONA TABLETA TODOS [place] EN LA QUINEBAUGANA 90 tablet 1 03/06/20 24 Active hydrocortisone (Anusol-HC) 2.5 % rectal cream Insert into the rectum 2 times daily. 90 g 04/27/20 24 Active verapamil SR (Calan SR) 240 MG ER tablet TAKE 1 TABLET BY MOUTH AT BEDTIME. DO NOT CRUSH OR CHEW. 90 tablet 1 01/01/20 25 Active magnesium oxide (Mag-Ox) 400 (240 Mg) MG tablet Take 1 tablet (400 mg) by mouth Once per day. 30 tablet 11 01/15/20 25 Active chlorthalidone (Hygroton) 25 MG tabletIndications :Primary hypertension TOME 1 TABLETA POR VIA ORAL TODOS [place] 90 tablet 1 05/10/20 25 Active nitrofurantoin, macrocrystal-mono hydrate, (Macrobid) 100 MG capsule Take 1 capsule (100 mg) by mouth 2 times daily for 5 days. 10 capsule 05/12/20 25 025 Active chlorthalidone (Hygroton) 25 MG tabletIndications :Primary hypertension TOME 1 TABLETA POR VIA ORAL TODOS [place] 90 tablet 1 11/14/19 25 025 Discontinued Active Problems Problem Noted Date [...] Encounters Date Type Department Care Team Description 05/12/2025 2:20 PM EDT Office Visit [facility] [address] [place] [phone] Juan José Felipe MD UTI symptoms (Primary Dx); Essential hypertension 05/12/[address] [facility] [address] [place] [phone] Cesario Soto MA Lab Orders (I called patient to let her know that we did not have enough urine to send the urine culture. There was no answer so i left a vm stating to come to the lab tomorrow to give a urine sample and to not start antibiotic until she gives the urine sample.) 05/12/2025 Travel 05/12/2025 Telephone [facility] [address] [place] [address] Linda Ornelas MD Nurse Triage 05/08/2025 Refill [facility] [address], [place] [phone] Chas Ojeda MD Primary hypertension 04/27/2025 Results Follow-Up [facility] [address] [place] [address] Linda Ornelas MD CBC auto differential, Comprehensive Metabolic Panel, Lipid Panel, Standard, TSH W/Reflex to FT4 04/26/2025 1:00 PM EDT Office Visit [facility] [address] [place] [address] Linda Ornelas MD Essential hypertension (Primary Dx); Bloating; Lumbar back pain; Chronic LLQ pain; Encounter for immunization 04/26/2025 Travel 2025 Patient Outreach [facility] [address] [place] [phone] Linda Ornelas MD Pre-visit Planning (Pre visit planning unable to LVM ) 04/15/2025 Telephone [facility] [address] [place] [address] Linda Ornelas MD chart prep 04/14/2025 Patient Outreach [facility] [address] [place] [phone] Linda Ornelas MD Pre-visit Planning (SDOH screening negative and Tobacco screening negative) 04/09/2025 Orders Only [facility] [address] [place] [address] Linda Ornelas MD from Last 3 Months [...] oz) 05/12/2025 2:23 P M EDT Height 154 cm (5' 0.63 ) 04/26/2025 12:47 PM EDT Body Mass Index 28.15 04/26/2025 12:47 PM EDT Plan of Treatment Health Maintenance Due Date Last Done Comments CT Colonography 1965 Colonoscopy 1965 FIT 1965 Sigmoidoscopy 1965 Pneumococcal Vaccine: 50+ Years (1 of 1 - PCV) 2013 FOBT 08/13/2024 08/13/2023 Depression Screening 04/27/2025 04/27/2024, 04/27/20 24 COVID-19 Vaccine (1 - season) 2025 Influenza Vaccine (#1) 2025 , 05/20/2023, 05/31/2022, Additional history exists Pap Smear 10/29/2025 10/29/2022, 09/16/2019 SDOH Screening 04/14/2026 04/14/2025 Alcohol/Substance Use Screening 04/26/2026 04/26/2025 Disability Screening 04/26/2026 04/26/2025 Zoster Vaccines (2 of 2) 04/26/2026 03/26/2022 Pos tponed from 05/21/2022 (Patient Refused) Tobacco Screening 05/12/2026 05/12/2025 Colorectal Cancer Screening 08/13/2026 FIT DNA/Cologuard 08/13/2026 08/13/2023 Mammogram 04/09/2027 04/09/2025, 0709/2023, 03/11/2023, Additional history exists Cervical Cancer Screening 10/29/2027 HPV/Cotest 10/29/2027 10/29/2022, 09/16/2019 Lipid Panel 04/26/2030 04/26/2025, 09/0 11/2023, 07/23/2023, Additional history exists DTaP/Tdap/Td Vaccines (3 - [...] Routine 05/12/2025 3:13 PM EDT UTI symptoms CULTURE, URINE, ROUTINE Routine 04/26/2025 6:07 PM EDT URINALYSIS, COMPLETE, WITH REFLEX TO CULTURE Routine 04/26/2025 1:30 PM EDT TSH W/REFLEX TO FT4 Routine 04/26/2025 1 :22 PM EDT Essential hypertension LIPID PANEL, STANDARD Routine 04/26/2025 1:22 PM EDT Essential hypertension COMPREHENSIVE METABOLIC PANEL Routine 04/26/2025 1:22 PM EDT Essential hypertension CBC WITH AUTO DIFFERENTIAL Routine 04/26/2025 1:22 PM EDT Essential hypertension BI MAMMOGRAM SCREENING TOMOSYNTHESIS BILATERAL Routine 04/09/2025 2:40 PM EDT HEPATITIS C AB W/REFL TO [...] Recently Relevant to Health Maintenance Results * (ABNORMAL) POCT urinalysis dipstick manually [...] CARE TEST ENTER/EDIT OR DERABLES Final Result * Culture, Urine, Routine (04/26/2025 6:07 PM EDT) Urine Urine specimen obtained by clean catch procedure / Unknown 04/26/2025 6:07 PM EDT 04/26/2025 6:07 PM EDT Comment:UACC Narrative [facility] - 04/28/2025 11:19 AM EDT Urine Culture Report Result Urine Culture 10,000 to 50,000 cfu/ml Urine Culture Mixed bacterial collin characteristic of Urine Culture urogenital contamination. Specimen Source: Urine clean catch us Linda Ornelas MD LAB MICROBIOLOGY - GENERAL OR DERABLES Final Result [facility] [address] [place] [phone] * (ABNORMAL) Urinalysis, Complete, with Reflex to Culture (04/26/2025 1:30 PM EDT) Color Urine Yellow [facility] Appearance Urine Clear [facility] PH 6.0 5.0 - 9.0 [facility] Glucose Urine UA Negative Negative mg/dL [facility] Urine Blood Negative Negative [facility] Specific [place] - Urine 1.025 1.005 - 1.025 [facility] Urine Protein Trace Neg-Trace mg/dL [facility] Urine Ketones Negative Negative mg/dL [facility] Nitrite Urine Negative Negative [facility] Leukocyte Esterase Urine Small (1+)(A) Negative [facility] RBC Urine 0-2 0 - 2 /HPF [facility] Urine WBC 0-5 0 - 5 /HPF [facility] Urine Squamous Epithelial Cell 6-10 0 - 2 /HPF [facility] Urine Bacteria 1+ None Seen [facility] Hyaline Casts, Urine 0-2 0 - 2 /LPF [facility] 04/26/2025 1:30 PM EDT 04/26/2025 5:34 PM EDT Narrative [facility] - 04/26/2025 6:07 PM EDT [id number], Clean Catch us Linda Ornelas MD LAB URINE ORDERABLES Final Re sult Performing Organization Address City/[facility] Co de Phone Number [facility] [address] [place] [phone] * TSH W/Reflex to FT4 (04/26/2025 1:22 PM EDT) TSH reflex Free T4 2.28 0.32 - 4.0 uIU/mL [facility] Blood Venous blood specimen / Unknown 04/26/2025 1:22 PM EDT 04/26/2025 2:10 PM EDT us Linda Ornelas MD LAB BLOOD ORDERABLES Final Re sult Performing Organization Address City/[facility]/ZIP Co de Phone Number [facility] [address] [place] [phone] * CBC auto differential (04/26/2025 1:22 PM EDT) White Blood Count 7.2 4.8 - 10.8 X10*3/uL [facility] Red Blood Count 4.32 4.20 - 5.50 X10*6/uL [facility] Hemoglobin 13.9 12.0 - 16.0 g/dl [facility] Hematocrit 41.4 37.0 - 47.0 % [facility] Mean Corpuscular Volume 95.8 80.0 - 98.0 fL [facility] Mean Corpuscular Hemoglobin 32.2 27.0 - 33.0 pg [facility] Mean Corpuscular HGB Conc 33.6 31.0 - 35.0 g/dl [facility] Red Cell Distribution Width 12.4 11.0 - 16.0 % [facility] Platelet Count 252 160 - 400 X10*3/uL [facility] Mean Platelet Volume 11.8 9.4 - 12.3 fL [facility] Neutrophils Percent Auto 60.6 45 - 73 % [facility] Imm Gran Pct Auto 0.1 0.0 - 0.4 % [facility] Lymphocytes Percent Auto 30.3 20 - 40 % [facility] Monocytes Percent Auto 6.9 2 - 11 % [facility] Eosinophils Percent Auto 1.7 0 - 4 % [facility] Basophils Percent Auto 0.4 0 - 2 % [facility] NRBC Pct Auto 0.0 0.0 - 0.2 /100WBC [facility] Neutrophils Absolute Auto 4.3 2.0 - 8.3 x10*3/uL [facility] Imm Gran Abs Auto 0.01 0.00 - 0.03 X10*3/uL [facility] Lymphocytes Absolute Auto 2.2 1.2 - 4.9 X10*3/uL [facility] Monocytes Absolute Auto 0.5 0.1 - 1.2 X10*3/uL [facility] Eosinophils Absolute Auto 0.1 0.0 - 0.4 X10*3/uL [facility] Basophils Absolute Auto 0.0 0.0 - 0.2 X10*3/uL [facility] NRBC Abs Auto 0.000 0.0 - 0.012 X10*3/uL [facility] Blood Venous blood specimen / Unknown 04/26/2025 1:22 PM EDT 04/26/2025 2:10 PM EDT Linda Ornelas MD LAB BLOOD ORDERABLES Final Re sult Performing Organization Address [facility] Co de Phone Number [facility] [address] [place] [phone] * (ABNORMAL) Lipid Panel, Standard (04/26/2025 1:22 PM EDT) Triglycerides 88 <150 mg/dL [facility] Comment:Desirable Triglyceri de: less than 150 mg/dLBorderline High Triglyceride 150-199 mg/dLHigh Triglyceride: 200-499 mg/dLVery High Triglyceride: greater than or equal to 5OO mg/dL Cholesterol 235(H) <200 mg/dL [facility] Comment:Desirable Cholestero l: less than 200 mg/dLBorderline High Cholesterol: 200-239 mg/dLHigh Cholesterol: greater than 239 mg/dL LDL Cholesterol Calculated 173(H) <100 mg/dL [facility] Comment:Desirable LDL: less than 100 mg/dLNear Optimal/Above Optimal LDL: 110- 129 mg/dLBorderline High LDL: 130-159 mg/dLHigh LDL: 160-189 mg/dLVery High LDL: greater than or equal to 190 mg/dL HDL Cholesterol 45 >40 mg/dL [facility] Comment:Desirable HDL: great er than 40 mg/dL Note: This HDL assay may give artificially low results in patients with liver disease. Blood Venous blood specimen / Unknown 04/26/2025 1:22 PM EDT 04/26/2025 2:10 PM EDT us Linda Ornelas MD LAB BLOOD ORDERABLES Final Re sult Performing Organization Address [facility]/ZIP Co de Phone Number [facility] [address] [place] [phone] * (ABNORMAL) Comprehensive Metabolic Panel (04/26/2025 1:22 PM EDT) Sodium 141 135 - 145 mmol/L [facility] Potassium 3.3 3.3 - 5.1 mmol/L [facility] Chloride 104 96 - 108 mmol/L [facility] Carbon Dioxide 29 22 - 29 mmol/L [facility] Anion Gap 11(L) 12 - 20 [facility] Urea Nitrogen (BUN) 10 9 - 16 mg/dL [facility] Creatinine, Serum 0.64 0.5 - 1.4 mg/dL [facility] Estimated Glomerular Filt Rate >60 [facility] Comment:Chronic Kidney Disea se: Estimated GFR < 60 mL/min/1.91q5Csjlec Kidney Disease: Estimated GFR < 15 mL/min/1.73m2 Glucose 86 60 - 115 mg/dL [facility] Calcium 9.3 8.4 - 10.2 mg/dL [facility] Bilirubin, Total 0.5 0.0 - 1.0 mg/dL [facility] Aspartate Amino Transferase 29 5 - 31 U/L [facility] Alanine Aminotransferase 26 0 - 31 U/L [facility] Total Protein 7.2 6.5 - 8.0 g/dL [facility] Albumin Level 4.3 3.5 - 5.0 g/dL [facility] Alkaline Phosphatase 67 39 - 117 U/L [facility] Blood Venous blood specimen / Unknown 04/26/2025 1:22 PM EDT 04/26/2025 2:10 PM EDT us Linda Ornelas MD LAB BLOOD ORDERABLES Final Re sult [facility] [address] [place] [phone] * BI Mammogram Screening Tomosynthesis Bilateral (04/09/2025 2:40 PM EDT) Anatomical Region Laterality Modality Breast Bilateral Mammography 04/09/2025 2:40 PM EDT Narrative 04/19/2025 10:34 AM EDT [facility] [address] [place] [address] Mammography Report Signed Patient: Leny Russo MR#: [id number] : 1965 Acct:[id number] Age/Sex: 59 / F ADM Date: 04/09/25 Loc: HO.MAMMO Attending Dr: Linda Ornelas MD Ordering Physician: Linda Ornelas MD Results: 1Nega tive Date of Service: 04/09/25 Follow Up: 1 Year From Orig inal Mammogram Procedure(s): MM tomosynthesis screening BI Accession Number(s): [id number] cc: Linda Ornelas MD EXAMINATION: MM SCREENING [...] Jill Ruffin MD 04/19/2025 10:32 AM EDT Dictated By: Jill Ruffin MD Signed By: <Electronically signed by Jill Ruffin MD in OV> 04/19/25 1032 DD/ 1440 TD/TT: 04/09/25 1459 Stage Manager: Procedure Note Donotuseinterpreter, Image - 04/19/2025 [facility] [address] [place] [address] Mammography Report Signed Patient: Andrea Russo#: [id number] : 1965Acct:[id number] Age/Sex: 59 / FADM Date: 04/09/25 Loc: HO.MAMMO Attending Dr: Linda Ornelas MD Ordering Physician: Linda Ornelas MDResults: 1Nega tive Date of Service: 04/09/25Follow Up: 1 Year From Orig inal Mammogram Procedure(s): MM tomosynthesis screening BI Accession Number(s): [id number] cc: Linda Ornelas MD EXAMINATION: MM SCREENING [...] Jill Ruffin MD 04/19/2025 10:32 AM EDT Dictated By: Jill Ruffin MD Signed By: <Electronically signed by Jill Ruffin MD in OV> 04/19/25 1032 DD/ 1440 TD/TT: 04/09/25 1459 Stage Manager: Result Dave Ornelas MD IMG BI PROCEDURES Final Resul t * Hepatitis C Antibody with Reflex to HCV, RNA, Quantitative, Real-Time PCR (08/29/2023 3:05 PM EST) Hepatitis C Antibody Nonreactive Nonreactive [facility] Comment:Antibodies to HCV no t detected; does not exclude early acuteHCV infection. Blood Venous blood specimen / Unknown 08/29/2023 3:05 PM EST 08/29/2023 5:57 PM EST Result Dave Ornelas MD LAB BLOOD ORDERABLES Final Re sult [facility] [address] [place] [phone] * HIV-1/2 Antigen and Antibodies, Fourth Generation, with Reflexes (08/29/2023 3:05 PM EST) HIV AB/AG Nonreactive Nonreactive [facility] Comment:HIV-1 p24 Ag and/or HIV-1/HIV-2 Ab not detected.A test result that is nonreactive does not exclude thepossibility of exposure to or infection with HIV-1 and/orHIV-2. Nonreactive results in this assay for individualswith prior exposure to HIV-1 and/or HIV-2 may be due toantigen and antibody levels that are below the limit ofdetection of this assay.The Vinglen[employer]abirmedical HIV Ag/Ab Combo assay result andsupplemental assay results should be interpreted inconjunction with the patient's clinical presentation,history and other laboratory results. If the results areinconsistent with clinical evidence, additional testing issuggested to confirm the result. Blood Venous blood specimen / Unknown 08/29/2023 3:05 PM EST 08/29/2023 5:57 PM EST Result Dave Ornelas MD LAB BLOOD ORDERABLES Final Re sult [facility] [address] [place] [phone] * Cologuard?? colon cancer screening (08/13/2023 8:00 AM EST) Cologuard Result Negative Negative 08/21/20 1:34 AM EST [facility] (CLIA #:[id number]) Comment: NEGATIVE TEST RESULT. A negative Cologuard [...] (Kaykay Aguilar al, N Engl J Med 2014;370(14):0926-3563) The normal value (reference range) for this assay is negative. COLOGUARD RE-SCREENING RECOMMENDATION: Periodic colorectal cancer screening is an important part of preventive healthcare for asymptomatic individuals at average risk for colorectal cancer. Following a negative Cologuard result, the [place] [employer] and U.S. Multi-Society Task Force screening guidelines recommend a Cologuard re-screening interval of 3 years. References: [place] [employer] Guideline for Colorectal Cancer Screening: https://www.cancer.org/cancer/qhmir-cyoxmi-wxetfr/gghoeuuzf-jqmfqgiht-moyqlxd/ac s-rec ommendations.html.; Aj DK, Sanford CR, Ian WyattK, Colorectal Cancer Screening: Recommendations for Physicians and Patients from the U.S. Multi-Society Task Force on Colorectal Cancer Screening , Am J Gastroenterology 2017; 112:1027-8771. TEST DESCRIPTION: Composite algorithmic analysis of stool [...] (Kaykay Aguilar al, N Engl J Med 2014;370(14):9768-3362.) Cologuard may produce a false negative or false positive result (no colorectal cancer or precancerous polyp present at colonoscopy follow up). A negative Cologuard test result does not guarantee the absence of CRC or advanced adenoma (pre-cancer). The current Cologuard screening interval is every 3 years. ([place] [employer] Society and U.S. Multi-Society Task Force). Cologuard performance data in a 10,000 patient pivotal study using colonoscopy as the reference method can be accessed at the following location: www.[employer]results. Additional description of the Cologuard test process, warnings and precautions can be found at www.[employer] Grouprd.com. Stool specimen (specimen) 08/13/2023 8:00 AM EST 08/14/2023 8:29 PM EST us Linda Ornelas MD LAB MOLECULAR DIAGNOSTICS ORD ERABLES Final Result [facility] (CLIA #:[id number]) [address] [place] [address], * Image-Guided Pap with Age-Based Screening Protocols (10/29/2022 10:03 AM EST) Comment [facility] Comment: This order for age-based cervical cancer and STI screening follows ACOG guidelines(PB 168, 140, AGC183). See individual assays for performing site location. Clinical Information: None given [facility] LMP: NONE GIVEN [employer] Prev. PAP: NONE GIVEN [employer] Prev. BX: NONE GIVEN [employer] SOURCE: None given [employer] Statement Of Adequacy: [facility] Comment: Satisfactory for evaluation. Endocervical/transformation zone component present. Interpretation/ Result: Negative for intraepithelial lesion or malignancy. [facility] COMMENT: This Pap test has been evaluated with computer assisted technology. [facility] Cytotechnologis t: [facility] Comment: [place], CT(ASCP) CT screening location: [place] [address] (Always Message) [facility] Comment: EXPLANATORY NOTE: The Pap is a [...] HPV nRNA E6/E7 Not Detected Not Detected [facility] Comment: Methodology: Deputy Sheriff Generalist-Mediated Amplification This assay detects E6/E7 viral messenger RNA (mRNA) from 14 high-risk HPV types (16,18,31,33,35,39,45,51,52,56,58,59,66,68). Cervical sources are required for HPV testing. If a vaginal source from a patient who has had a total hysterectomy with removal of cervix was submitted, please contact the testing laboratory for alternative testing options. For additional information, please refer to http://education.Sr.Pago/faq/XIC912s7 (This link if provided for information/ educational purposes only.) 10/29/2022 10:0 3 AM EST 10/31/2022 8:30 AM EST Narrative [facility] - 11/02/2022 10:15 AM EST FASTING: UNKNOWN [facility] LAB BLOOD ORDERABLES Bella gerber Result [facility] [address], [address], [place] [address] [facility] [address], ([address]) [place] [address] from Last 3 Months or Most Recently Relevant to Health Maintenance [place] [address] [place] [address] CARE < 65 [place] [id number] Care Teams Detention Deputy Relationship Specialty Start Date End Date Linda Ornelas MD [address] [place] [phone] PCP - General Family Medicine 05/02/20
--- OUTSIDE RECORDS SUMMARY | 2025-05-13 17:55 | XMS_ITS | Encounter Summary ---
Author Organization [employer] Address [address] [place] [address] Care Team Providers Care New Car Make Ready Mechanic Name Role Phone Linda Ornelas MD Primary Care Provider [phone] Reason for Visit * Reason Comments Med Refill Encounter Details Date Type Department Care Team ([facility] st Contact Info) Description 05/08/[address] [facility] [address] [place], [place] [phone] Chas Ojeda MD [address] [place] [address] Primary hypertension Social History Tobacco Use Types Packs/Day [...] of this encounter Visit Diagnoses Diagnosis Primary hypertension Unspecified essential hypertension documented in this encounter Additional Health Concerns Assessment Noted Time PHQ-9 Depression Total Score: 0 04/27/20 24 1:12 PM EDT documented as of this encounter Care Teams New Car Make Ready Mechanic Relationship Specialty Start Date End Date Linda Ornelas MD [address] [place] [address] PCP - General Family Medicine 05/02/20 documented as of this encounter
--- OUTSIDE RECORDS SUMMARY | 2025-05-13 17:56 | XMS_ITS | Encounter Summary ---
Author Organization [employer] Address [address] [facility] 7t [place] [address] Care Team Providers Care Shipping Weigher Name Role Phone Linda Ornelas MD Primary Care Provider [phone] Reason for Visit * Reason Onset Date Comments Lab Orders 05/12/2025 I called patient to let her know that we did not have enough urine to send the urine culture. There was no answer so i left a vm stating to come to the lab tomorrow to give a urine sample and to not start antibiotic until she gives the urine sample. Encounter Details Date Type Department Care Team (Late st Contact Info) Description 05/12/2025 Telephone [facility] [address] [place] [address] [place], [place] Lab Orders (I called patient to let her know that we did not have enough urine to send the urine culture. There was no answer so i left a vm stating to come to the lab tomorrow to give a urine sample and to not start antibiotic until she gives the urine sample.) Social History Tobacco Use Types Packs/Day Years [...] encounter Miscellaneous Notes * Telephone Encounter - Cesario Soto [place] - 05/12/2025 4:09 PM EDT I called patient to let her know that we did not have enough urine to send the urine culture. Therewas no answer so i left a vm stating to come to the lab tomorrow to give a urine sample and to not start antibiotic until she gives the urine sample. documented in this encounter Plan of Treatment Not on file documented as of this encounter Visit Diagnoses Not on filedocumented in this encounter Additional Health Concerns Assessment Noted Time PHQ-9 Depression Total Score: 0 04/27/20 24 1:12 PM EDT documented as of this encounter Care Teams Shipping Weigher Relationship Specialty Start Date End Date Linda Ornelas MD [address] [place] [address] PCP - General Family Medicine 05/02/20 documented as of this encounter
--- OUTSIDE RECORDS SUMMARY | 2025-05-13 17:56 | XMS_ITS | Encounter Summary ---
Author Organization [employer] Address 75 [facility] [address]t h Floor [place] [id number] Care Team Providers Care Rn Procedure Name Role Phone Linda Ornelas MD Primary Care Provider [phone] Encounter Details Date Type Department Care Team (Latest Contact Info) Description 05/12/2025 Travel Social History Tobacco Use Types Packs/Day [...] documented as of this encounter Care Teams Rn Procedure Relationship Specialty Start Date End Date Linda Ornelas MD [address] [place] [phone] PCP - General Family Medicine 05/02/20 documented as of this encounter
== END 2025-05-12 14:08 | disposition home or self-care (01) ==
LOC: HO.HHCLNP 14:07
PROVIDERS: Visit Provider Emergency Medicine
DX: R39.9 Unspecified symptoms and signs involving the genitourinary system (principal)
CPT/HCPCS: 87086

== ENCOUNTER 2025-08-21 12:18 | Emergency (ER) | payer OTHER, SELFPAY ==
[2025-08-21 13:04] VITALS: BP 135/83; PULSE 80; RESP 18; TEMP 36.4; O2SAT 96; BMI 27.4
--- NOTE | 2025-08-21 13:08 | ED.GENADULT ---
HPI - General Adult General Chief complaint: General Medical Stated complaint: swollen face, pain not sure why Time Seen by Provider: 08/21/25 13:15 Source: patient and per diem interpreter Mode of arrival: ambulatory Limitations: language barrier History of Present Illness ED Provider: Milagro Alarcon APRN HPI narrative: 60 yo female healthy here with right sided facial swelling noticed when eating eggs, yucca this morning for breakfast. Swelling has decreased with time but some is still present. Has mild pain. no dental pain, sore throat, congestion, difficulty swallowing, difficulty breathing, vomiting, diarrhea or abdominal cramping. No rash noted. Related Data Home Medications ?Medication ?Instructions ?Recorded ?Confirmed atorvastatin 40 mg tablet 40 mg PO DAILY 08/23/23 chlorthalidone 25 mg tablet 25 mg PO DAILY 08/23/23 verapamil 240 mg tablet,extended 240 mg PO DAILY 08/23/23 release Previous Rx's ?Medication ?Instructions ?Recorded clindamycin HCl 150 mg capsule 150 mg PO TID #21 caps 08/21/25 (Cleocin HCl) Allergies Allergy/AdvReac Type Severity Reaction Status Date / Time ascorbic acid (ASCORBIC ACID) Allergy Unknown HIVES Verified 08/21/25 13:09 Review of Systems Review of Systems: Yes all other systems are reviewed and are negative Constitutional: Constitutional: Reports no additional constitutional complaints, Denies body ache(s), Denies chills, Denies fever(s), Denies headache(s) and Denies weakness Eyes: Eyes: Reports no additional eye complaints and Denies change in vision ENT: Reports system reviewed and no additional complaints, except as documented, Denies dizziness, Reports facial pain, Denies headache(s), Denies nasal congestion, Denies nasal discharge and Denies neck pain Cardiovascular: Cardiovascular: Reports no additional cardiovascular complaints, Denies chest pain, Denies leg edema and Denies dyspnea Respiratory: Respiratory: Reports no additional respiratory complaints, Denies cough and Denies dyspnea Gastrointestinal: Gastrointestinal: Reports no additional gastrointestinal complaints, Denies abdominal pain, Denies diarrhea, Denies nausea and Denies vomiting Genitourinary: Genitourinary: Reports no additional female genitourinary complaints and Denies urinary incontinence Musculoskeletal: Musculoskeletal: Reports no additional musculoskeletal complaints, Denies back pain, Denies arthralgias, Denies joint swelling, Denies neck pain, Denies numbness and Denies tingling Integumentary/Breasts: Skin/Breast: Reports system reviewed and no additional complaints, except as docu and Denies rash Neurologic: Reports system reviewed and no additional complaints, except as documented, Denies Abnormal speech present, Denies dizziness, Denies headache(s), Denies numbness, Denies tingling and Denies weakness PMFSH Past Medical History Attestation statement: The following information was validated with the patient. Source: old records reviewed and nursing notes reviewed Medical History Hyperlipidemia Essential hypertension Depressive disorder Physical Exam ED Vital Signs: Vital Signs - 24 hr 08/21/25 13:04 Temperature 97.5 F Pulse Rate 80 Respiratory Rate 18 Blood Pressure 135/83 Pulse Oximetry 96 Oxygen Delivery Method Room Air BMI result Body Mass Index 27.4 Const General: cooperative, healthy appearing, comfortable and no acute distress Orientation/consciousness: patient oriented x3 Limitations: no limitations HENMT Head: Yes normal to inspection Ears: hearing grossly normal bilaterally and TM's normal bilaterally General nose exam: Normal external nose present Face and sinus: Yes normal facial exam Face images:  1. right parotid gland swelling, mild tenderness Mouth: Normal oral and palatal mucosa present Throat: Yes posterior oropharynx normal, Yes tonsils normal and Yes uvula midline Eyes General: appearance normal, both eyes and all related structures Pupils: Equal, round and reactive pupils present Neck Neck: Yes normal visual inspection, Yes full ROM, Yes no lymphadenopathy and Yes no meningeal signs Chest Chest palpation & inspection: normal inspection of the chest Resp Effort & Inspection: normal respiratory effort Auscultation: clear to auscultation bilaterally Cardio Rate: regular rate Rhythm: regular rhythm Peripheral pulses: Peripheral pulses 2+ throughout GI Inspection: Yes normal to inspection Palpation (GI): Soft to palpation and nontender Auscultation: normal bowel sounds Back/Spine/Pelvis Thoracic/Lumbar Spine: thoracic and lumbar spine normal to inspection Skin General skin exam: no rashes or lesions noted Neuro General: patient oriented x3, no meningeal signs, no focal motor deficits and normal sensation to monofilament Cranial nerves: Yes Equal, round and reactive pupils present Cognition (Neuro): normal cognition Speech: No Abnormal speech present Gait exam (Neuro): Normal gait present Motor exam (neuro): 5/5 motor strength present throughout Extrem General: Yes normal to inspection Medical Decision Making Medical Decision Making MDM Narrative: 60 yo female healthy here with right sided facial swelling noticed when eating eggs, yucca this morning for breakfast. Swelling has decreased with time but some is still present. Has mild pain. no dental pain, sore throat, congestion, difficulty swallowing, difficulty breathing, vomiting, diarrhea or abdominal cramping. No rash noted. R parotid gland swelling No airway involvement, angioedema, lip or tongue swellig LS CTA Tolerating secretions Will discharge home with clindamycin, supportive measures Reviewed worrisome signs/symptoms with patient and when to return to the ER. Comfortable with discharge home. 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, RPA, epiglottitis Admission/Observation Consideration of admission/observation: Escalation of care including admission/observation considered Prescription Management I considered prescription management with: Antibiotic Discharge Plan Discharge Clinical Impression: Acute parotitis Patient Disposition: Home, Self-Care Instructions: Sialoadenitis (ED) Additional Instructions: buy sour candies and suck on these daily Alternate Motrin or Tylenol for any pain as needed Follow up with your doctor for any continued symptoms Prescriptions: New clindamycin HCl [Cleocin HCl] 150 mg capsule 150 mg PO TID Qty: 21 0RF No Action verapamil 240 mg tablet extended release 240 mg PO DAILY atorvastatin 40 mg tablet 40 mg PO DAILY chlorthalidone 25 mg tablet 25 mg PO DAILY Referrals: Linda Ornelas MD [Primary Care Provider, Medical] Print Language: Mohawk
--- OUTSIDE RECORDS SUMMARY | 2025-08-21 13:21 | XMS_ITS | Encounter Summary ---
Author Organization [employer] Address [address] [facility] 7t [place] [address] Care Team Providers Care Hat Cutter Name Role Phone Linda Ornelas MD Primary Care Provider [phone] Encounter Details Date Type Department Care Team (Late st Contact Info) Description 05/07/2023 Orders Only [facility] [address] [place] [address] Lakesha Saravia LPN Social History Tobacco Use [...] on filedocumented in this encounter Care Teams Hat Cutter Relationship Specialty Start Date End Date Linda Ornelas MD [address] [place] [phone] PCP - General Family Medicine 05/02/20 documented as of this encounter
--- OUTSIDE RECORDS SUMMARY | 2025-08-21 13:21 | XMS_ITS | Clinical Summary ---
Author Organization [email or web address] Address [address] [facility] 7t [place] [address] Care Team Providers Care Project Management Analyst Name Role Phone Linda Ornelas MD Primary Care Provider [phone] Allergies Active Allergy Reactions Criticality Noted Date [...] JONA TABLETA [place] 90 tablet 1 4 Active hydrocortisone (Anusol-HC) 2.5 % rectal cream Insert into the rectum 2 times daily. 90 g 4 Active magnesium oxide (Mag-Ox) 400 (240 Mg) MG tablet Take 1 tablet (400 mg) by mouth Once per day. 30 tablet 11 5 Active chlorthalidone (Hygroton) 25 MG tabletIndications: Primary hypertension TOME 1 TABLETA POR VIA ORAL TODOS [place] 90 tablet 1 5 Active verapamil SR (Calan SR) 240 MG ER tablet TAKE 1 TABLET BY MOUTH AT BEDTIME. DO NOT CRUSH OR CHEW. 90 tablet 1 5 Active rosuvastatin (Crestor) 40 MG tablet Take 1 tablet (40 mg) by mouth Once per day. 90 tablet 1 5 Active senna-docusate sodium (Senokot-S) 8.6-50 MG tablet Take 2 tablets by mouth if needed at bedtime for constipation. 60 tablet 5 Active Active Problems Problem Noted Date [...] keep treating with medication. Essential hypertension 02/28/2012 3 Assessment & Plan (04/27/2024 1:49 PM EDT): [...] Encounters Date Type Department Care Team Description 08/02/2025 3:15 PM EST Office Visit [facility] [address] [place] [address] Linda Ornelas MD Hyperlipidemia, unspecified hyperlipidemia type (Primary Dx); Essential hypertension 08/02/2025 Travel 07/20/2025 Patient Outreach [facility] [address] [place], [place] [phone] Linda Ornelas MD Pre-visit Planning (SDAL screening was completed on 04/14/2025) 07/02/2025 Refill [facility] [address] [place] [address] Linda Ornelas MD from Last 3 Months [...] Sign Reading Time Taken Comments Blood Pressure 124/70 08/02/2025 3:01 PM EST Pulse 76 08/02/2025 3:01 PM EST Temperature 36.9 C (98.5 F) 05/12/2025 2:23 PM EDT Respiratory Rate 20 08/02/2025 3:01 PM EST Oxygen Saturation 97% 05/12/2025 2:23 PM EDT Inhaled Oxygen Concentration - - Weight 65.8 kg (145 lb) 08/02/2025 3:01 PM EST Height 154 cm (5' 0.63 ) 04/26/2025 12:47 PM EDT Body Mass Index 27.73 04/26/2025 12:47 PM EDT Plan of Treatment Health Maintenance Due Date Last Done Comments CT Colonography 1965 Colonoscopy 1965 FIT 1965 Sigmoidoscopy 1965 FOBT 08/13/2024 08/13/2023 Depression Screening 04/27/2025 04/27/2024, 04/27/20 24 Pap Smear 10/29/2025 10/29/2022, 09/16/2019 SDOH Screening 04/14/2026 04/14/2025 Alcohol/Substance Use Screening 04/26/2026 04/26/2025 Disability Screening 04/26/2026 04/26/2025 Zoster Vaccines (2 of 2) 04/26/2026 03/26/2022 Pos tponed from 05/21/2022 (Patient Refused) COVID-19 Vaccine (1 - season) 2026 Postponed from 05/03/2025 (Patient Refused) Pneumococcal Vaccine: 50+ Years (1 of 1 - PCV) 08/02/2026 Postponed from 2013 (Patient Refused) Tobacco Screening 08/02/2026 08/02/2025 Colorectal Cancer Screening 08/13/2026 FIT DNA/Cologuard 08/13/2026 [...] Completed 08/29/2023 Hepatitis C Screening Completed 08/29/2023 Influenza Vaccine Completed 06/14/2025, , 05/20/2023, Additional history exists HIB Vaccines Aged Out No longer eligi [...] Procedure Name Priority Date/Time Associated Diagnosis Comments LIPID PANEL, STANDARD Routine 04/26/2025 1:22 PM [...] Relevant to Health Maintenance Results * (ABNORMAL) Lipid Panel, Standard (04/26/2025 1:22 PM EDT) Triglycerides 88 <150 mg/dL [facility] Comment:Desirable Triglyceri de: less than 150 mg/dLBorderline High Triglyceride 150-199 mg/dLHigh Triglyceride: 200-499 mg/dLVery High Triglyceride: greater than or equal to 5OO mg/dL Cholesterol 235(H) <200 mg/dL [facility] Comment:Desirable Cholestero l: less than 200 mg/dLBorderline High Cholesterol: 200-239 mg/dLHigh Cholesterol: greater than 239 mg/dL LDL Cholesterol Calculated 173(H) <100 mg/dL [facility] Comment:Desirable LDL: less than 100 mg/dLNear Optimal/Above Optimal LDL: 110- 129 mg/dLBorderline High LDL: 130-159 mg/dLHigh LDL: 160-189 mg/dLVery High LDL: greater than or equal to 190 mg/dL HDL Cholesterol 45 >40 mg/dL [facility] Comment:Desirable HDL: great er than 40 mg/dL Note: This HDL assay may give artificially low results in patients with liver disease. Blood Venous blood specimen / Unknown 04/26/2025 1:22 PM EDT 04/26/2025 2:10 PM EDT us Linda Ornelas MD LAB BLOOD ORDERABLES Final Re sult [facility] [address] [place] [address] [phone] * BI Mammogram Screening Tomosynthesis Bilateral (04/09/2025 2:40 PM EDT) Anatomical Region Laterality Modality Breast Bilateral Mammography 04/09/2025 2:40 PM EDT Narrative 04/19/2025 10:34 AM EDT [facility] [address] [place] [address] Mammography Report Signed Patient: Leny Russo MR#: [id number] : 1965 Acct:[id number] Age/Sex: 59 / F ADM Date: 04/09/25 Loc: HO.MAMMO Attending Dr: Linda Ornelas MD Ordering Physician: Linda Ornelas MD Results: 1Nega tive Date of Service: 04/09/25 Follow Up: 1 Year From Orig [facility] Mammogram Procedure(s): MM tomosynthesis screening BI Accession Number(s): [id number] cc: Linda Ornelas MD EXAMINATION: MM SCREENING [...] 04/19/25 1032 DD/ 1440 TD/TT: 04/09/25 1459 Lead Software Engineer: Procedure Note Donotuseinterpreter, Image - 04/19/2025 [place] [facility] [address] [place] [address] Mammography Report Signed Patient: Andrea Russo#: [id number] : 1965Acct:[id number] Age/Sex: 59 / FADM Date: 04/09/25 Loc: HO.MAMMO Attending Dr: Linda Ornelas MD Ordering Physician: Linda Ornelas MDResults: 1Nega tive Date of Service: 04/09/25Follow Up: 1 Year From [facility] Mammogram Procedure(s): MM tomosynthesis screening BI Accession Number(s): [id number] cc: Linda Ornelas MD EXAMINATION: MM SCREENING [...] 04/19/25 1032 DD/ 1440 TD/TT: 04/09/25 1459 Lead Software Engineer: us Linda Ornelas MD IMG BI PROCEDURES Final Resul t * Hepatitis C Antibody with Reflex to HCV, RNA, Quantitative, Real-Time PCR (08/29/2023 3:05 PM EST) Hepatitis C Antibody Nonreactive Nonreactive [facility] Comment:Antibodies to HCV no t detected; does not exclude early acuteHCV infection. Blood Venous blood specimen / Unknown 08/29/2023 3:05 PM EST 08/29/2023 5:57 PM EST us Linda Ornelas MD LAB BLOOD ORDERABLES Final Re sult Performing Organization Address [facility] Co de Phone Number [facility] [address] [place] [phone] * HIV-1/2 Antigen and Antibodies, Fourth Generation, with Reflexes (08/29/2023 3:05 PM EST) Pathologist [facility] HIV AB/AG Nonreactive Nonreactive [facility] Comment:HIV-1 p24 Ag and/or HIV-1/HIV-2 Ab not detected.A test result that is nonreactive does not exclude thepossibility of exposure to or infection with HIV-1 and/orHIV-2. Nonreactive results in this assay for individualswith prior exposure to HIV-1 and/or HIV-2 may be due toantigen and antibody levels that are below the limit ofdetection of this assay.The luma-idnidrchrono HIV Ag/Ab Combo assay result andsupplemental assay results should be interpreted inconjunction with the patient's clinical presentation,history and other laboratory results. If the results areinconsistent with clinical evidence, additional testing issuggested to confirm the result. Blood Venous blood specimen / Unknown 08/29/2023 3:05 PM EST 08/29/2023 5:57 PM EST us Linda Ornelas MD LAB BLOOD ORDERABLES Final Re sult Performing Organization Address [facility] Co de Phone Number [facility] [address] [place] [phone] * Cologuard?? colon cancer screening (08/13/2023 8:00 AM EST) Pathologist [facility] Cologuard Result Negative Negative 08/21/20 1:34 AM EST [facility] (CLIA #:[id number]) Comment: NEGATIVE TEST RESULT. A negative Cologuard [...] Siegel et al, N Engl J Med 2014;370(14):3310-0043) The normal value (reference range) for this assay is negative. COLOGUARD RE-SCREENING RECOMMENDATION: Periodic colorectal cancer screening is an important part of preventive healthcare for asymptomatic individuals at average risk for colorectal cancer. Following a negative Cologuard result, the [place] Cancer Society and U.S. Multi-Society Task Force screening guidelines recommend a Cologuard re-screening interval of 3 years. References: [place] Cancer Society Guideline for Colorectal Cancer Screening: https://www.cancer.org/cancer/kzomh-fjseoh-cbifyq/qrbmvotce-vpfmwztjg-ischelj/ac s-rec ommendations.html.; Aj DK, Sanford CR, Ian WyattK, Colorectal Cancer Screening: Recommendations for Physicians and Patients from the U.S. Multi-Society Task Force on Colorectal Cancer Screening , Am J Gastroenterology 2017; 112:5073-6736. TEST DESCRIPTION: Composite algorithmic analysis of stool [...] (Kaykay Aguilar al, N Engl J Med 2014;370(14):2915-1909.) Cologuard may produce a false negative or false positive result (no colorectal cancer or precancerous polyp present at colonoscopy follow up). A negative Cologuard test result does not guarantee the absence of CRC or advanced adenoma (pre-cancer). The current Cologuard screening interval is every 3 years. ([place] Cancer Society and U.S. Multi-Society Task Force). Cologuard performance data in a 10,000 patient pivotal study using colonoscopy as the reference method can be accessed at the following location: www.[employer]/results. Additional description of the Cologuard test process, warnings and precautions can be found at www.JUNIQErd.Cass Art. Stool specimen (specimen) 08/13/2023 8:00 AM EST 08/14/2023 8:29 PM EST us Linda Ornelas MD LAB MOLECULAR DIAGNOSTICS ORD ERABLES Final Result [facility] (CLIA #:[id number]) [address] [place] [address], * Image-Guided Pap with Age-Based Screening Protocols (10/29/2022 10:03 AM EST) Comment [facility] Comment: This order for age-based cervical cancer and STI screening follows ACOG guidelines(PB 168, 140, KMU353). See individual assays for performing site location. Clinical Information: None given [facility] [employer] [facility] LMP: NONE GIVEN [facility] Prev. PAP: NONE GIVEN [facility] Prev. BX: NONE GIVEN [facility] [facility] SOURCE: None given [facility] [employer] [facility] Statement Of Adequacy: [facility] Comment: Satisfactory for evaluation. Endocervical/transformation zone component present. Interpretation/ Result: Negative for intraepithelial lesion or malignancy. [facility] [place] [facility] Comment: This Pap test has been evaluated with computer assisted technology. [facility] [place] [facility] Cytotechnologis t: [facility] [place] [facility] Comment: WAC, CT(ASCP) CT screening location: [place] [address] (Always Message) [facility] Comment: EXPLANATORY NOTE: The Pap is a [...] HPV nRNA E6/E7 Not Detected Not Detected [facility] Comment: Methodology: Tube Skiver-Mediated Amplification This assay detects E6/E7 viral messenger RNA (mRNA) from 14 high-risk HPV types (16,18,31,33,35,39,45,51,52,56,58,59,66,68). Cervical sources are required for HPV testing. If a vaginal source from a patient who has had a total hysterectomy with removal of cervix was submitted, please contact the testing laboratory for alternative testing options. For additional information, please refer to http://education.[facility]/faq/BHU267l0 (This link if provided for information/ educational purposes only.) 10/29/2022 10:0 3 AM EST 10/31/2022 8:30 AM EST Narrative [facility] - 11/02/2022 10:15 AM EST FASTING: UNKNOWN us [facility] LAB BLOOD ORDERABLES Bella mayes Result [address], [facility], [place] [phone] [facility] [place] [facility] [address] [place] [address], ([address]) [place] [address] from Last 3 Months or Most Recently Relevant to Health Maintenance Insurance [employer] < 65 [place] [id number] Care Teams Project Management Analyst Relationship Specialty Start Date End Date Linda Ornelas MD [address] [place] [phone] PCP - General Family Medicine 05/02/20
--- OUTSIDE RECORDS SUMMARY | 2025-08-21 13:21 | XMS_ITS | Encounter Summary ---
Author Organization [employer] Address [address] [facility] 7t [place] [address] Care Team Providers Care Retail Chain Store Area Supervisor Name Role Phone Linda Ornelas MD Primary Care Provider [phone] Reason for Visit * Reason Comments Med Refill Encounter Details Date Type Department Care Team (Late st Contact Info) Description 09/21/2022 Refill [facility] PEDS [address] [place], [place] [phone] Linda Ornelas MD [address] [place] [address] Primary hypertension (Primary Dx) Social History Tobacco [...] hypertension documented in this encounter Care Teams Retail Chain Store Area Supervisor Relationship Specialty Start Date End Date Linda Ornelas MD [address] [place] [address] PCP - General Family Medicine 05/02/20 documented as of this encounter
[2025-08-21 16:02] VITALS: BP 135/83; PULSE 80; RESP 18; TEMP 36.4; O2SAT 96
== END 2025-08-21 16:03 | disposition home or self-care (01) ==
PROVIDERS: Emergency Provider Emergency Medicine; PCP Family Medicine
DX: K11.21 Acute sialoadenitis (principal); R60.0 Localized edema; E78.5 Hyperlipidemia, unspecified; I10 Essential (primary) hypertension
CPT/HCPCS: 99282; 99283